=== PATIENT | male | born 1970 | race Caucasian/White ===

== ENCOUNTER 2016-11-19 05:33 | Emergency (ER) | payer OTHER ==
[~2016-11-19] VITALS: Ht 177.8 cm; Wt 81.5 kg
[~2016-11-19 05:33] MED LIST: ALPR2TAB3 PO
[2016-11-19 05:42] VITALS: BP 160/80; PULSE 92; RESP 18; TEMP 97.7; O2SAT 100
[2016-11-19] MEDS ORDERED: ALPR.5 PO (06:39)
--- NOTE | 2016-11-19 06:40 | PD ---
HPI Chief Complaint: Anxiety Time Seen by Provider: 06:17 Travel History International Travel<30 days: No Contact w/Intl Traveler<30days: No Traveled to known affect area: No History of Present Illness HPI The patient is a 46-year-old male who drove his car to the emergency department because of panic attack and anxiety. He states he cannot find his 0.5 mg Xanax that are prescribed to him by [facility]. He knew he was having his typical anxiety/panic disorder but could not find his medication for it. He only takes Xanax when he has a panic attack. He complains of his usual chest tightness and shortness of breath. He has had these episodes multiple times before and knows that they're typical of his panic attacks. He denies any syncopal or near syncopal spells. The patient does have a history of mitral valve prolapse. PFSH Past Medical History Hx Anticoagulant Therapy: No Anxiety: Yes (PTSD) Cardiovascular Problems: No Chemotherapy: No Chest Pain: Yes Cerebrovascular Accident: No Diabetes: No Diminished Hearing: No Respiratory: No Tetanus Vaccination: Unknown Influenza Vaccination: No Past Surgical History Abdominal Surgery: No Hysterectomy: No Joint Replacement: Yes (RIGHT ARM AND LEFT LEG) Other Surgery: Yes (RT ARM FX, LT LEG FX, RIB FX, SKULL FX) Social History Alcohol Use: Yes (BEER OCCASIONALLY) Tobacco Use: No (QUIT 27 YRS AGO) Substance Use: No Allergies-Medications (Allergen,Severity, Reaction): Coded Allergies: No Known Allergies (Unverified , 11/19/16) 05/14/15 Reported Meds & Prescriptions Reported Meds & Active Scripts Active No Active Prescriptions or Reported Medications Review of Systems Except as stated in HPI: all other systems reviewed are Neg Physical Exam Narrative GENERAL: Well-nourished, well-developed patient in no apparent distress. His vital signs show blood pressure 160/80 but are otherwise normal.. SKIN: Warm and dry. HEAD: Normocephalic. EYES: No scleral icterus. No injection or drainage. NECK: Supple, trachea midline. No JVD or lymphadenopathy. CARDIOVASCULAR: Regular rate and rhythm with a 2/6 systolic murmurs, gallops, or rubs. RESPIRATORY: Breath sounds equal bilaterally. No accessory muscle use. GASTROINTESTINAL: Abdomen soft, non-tender, nondistended. MUSCULOSKELETAL: No cyanosis, or edema. BACK: Nontender without obvious deformity. No CVA tenderness. Data Data Last Documented VS Vital Signs Date Time Temp Pulse Resp B/P Pulse Ox O2 Delivery O2 Flow Rate FiO2 11/19/16 05:45 100 18 11/19/16 05:42 97.7 160/80 100 Orders Electrocardiogram (11/19/16 ) MDM Medical Decision Making Medical Screen Exam Complete: Yes Emergency Medical Condition: Yes Medical Record Reviewed: Yes Interpretation(s) The EKG is completely normal with normal sinus rhythm rate of 68. Differential Diagnosis Panic attack, acute coronary syndromehighly unlikely, mitral valve prolapse pain Narrative Course The patient appears to have a panic attack. He appears very calm now but will be given a prescription for 0.5 mg Xanax, No. 15 for future panic attacks. Week he should call his primary care physician and get a refill on his Xanax. Diagnosis Primary Impression: Panic attack Additional Impression: Medication refill Additional Instructions: As we discussed, follow-up with your primary care physician at [facility] next week as soon as possible. Med/Other Pt SpecificInfo: Prescription(s) given Scripts Alprazolam (Xanax)0.5 Mg Tab0.5 Mg PO Q8H PRN (ANXIETY) #15 TAB Ref 0 Prov:Redd Zee MD 11/19/16 Disposition: 01 DISCHARGE HOME Condition: Stable Redd Zee MD Nov 19, 2016 06:40
[2016-11-19] MEDS ORDERED: ALPRAZolam 0.5 MG TAB PO ONE (06:45)
[2016-11-19 06:52] VITALS: BP 150/84; PULSE 78; RESP 18; O2SAT 98
--- NOTE | 2016-11-19 14:34 | EKG ---
Date Performed: 11/19/2016 Time Performed: 06:26:34 PTAGE: 46 years EKG: Sinus rhythm . Normal ECG PREVIOUS TRACING : 11/08/2015 04.56 No significant change from previous tracing noted. DOCTOR: Dino Araiza Interpretating Date/Time 11/19/2016 14:32:22
[2017-01-12] MEDS ORDERED: ZOLO50TA PO (10:30)
[2017-01-12] MEDS ORDERED: LORA-474 PO (10:30)
[2017-03-01] MEDS ORDERED: ZOLO50TA PO (11:24)
== END 2016-11-19 07:01 | disposition home or self-care (01) ==
LOC: PHED 05:33
DX: F41.0 Panic disorder [episodic paroxysmal anxiety] (principal); R06.02 Shortness of breath; Z76.0 Encounter for issue of repeat prescription
CPT/HCPCS: 93005

== ENCOUNTER 2016-11-26 14:46 | Emergency (ER) | payer OTHER ==
[~2016-11-26] VITALS: Ht 177.8 cm; Wt 81.0 kg
[~2016-11-26 14:46] MED LIST changes: +ALPR.5 PO; -ALPR2TAB3 PO
[2016-11-26 14:57] VITALS: BP 157/86; PULSE 102; RESP 16; TEMP 100.7; O2SAT 97
[2016-11-26] MEDS ORDERED: BENA25TA3 PO (15:04)
[2016-11-26 15:05] VITALS: BP 134/72; PULSE 96; RESP 18; TEMP 99.7; O2SAT 96
[2016-11-26] MEDS ORDERED: NAPR500T PO (15:16)
[2016-11-26] MEDS ORDERED: OSEL75 PO (15:16)
--- NOTE | 2016-11-26 15:17 | PD ---
HPI Chief Complaint: Fever Time Seen by Provider: 15:04 Travel History International Travel<30 days: No Contact w/Intl Traveler<30days: No Traveled to known affect area: No History of Present Illness HPI This Is a 46-year-old male who presents to the emergency department having woken up at 2 AM with body aches, sore throat, rhinorrhea, fever and feeling "hot", moderate severity, constant, worsening throughout the day. He has had a cough with some clear sputum production. He reports that his children have all been sick with similar symptoms. He is otherwise healthy. PFSH Past Medical History Hx Anticoagulant Therapy: No Anxiety: Yes (PTSD) Cardiovascular Problems: Yes (mitral valve prolapse) Chemotherapy: No Chest Pain: Yes Cerebrovascular Accident: No Diabetes: No Diminished Hearing: No Respiratory: No Influenza Vaccination: No Past Surgical History Abdominal Surgery: No Hysterectomy: No Joint Replacement: Yes (RIGHT ARM AND LEFT LEG) Other Surgery: Yes (RT ARM FX, LT LEG FX, RIB FX, SKULL FX) Social History Alcohol Use: Yes (BEER OCCASIONALLY) Tobacco Use: No (QUIT 27 YRS AGO) Substance Use: No Allergies-Medications (Allergen,Severity, Reaction): Coded Allergies: No Known Allergies (Unverified , 11/19/16) 05/14/15 Reported Meds & Prescriptions Reported Meds & Active Scripts Active Xanax (Alprazolam) 0.5 Mg Tab 0.5 Mg PO Q8H PRN Reported Benadryl Allergy (Diphenhydramine HCl) 25 Mg Tab 25 Mg PO Q6H PRN Review of Systems Except as stated in HPI: all other systems reviewed are Neg Physical Exam Narrative GENERAL:Well appearing, no acute distress SKIN: Warm and dry. HEAD: Atraumatic. Normocephalic. EYES: Pupils equal and round. No injection or drainage. ENT: Moist mucous membranes. Mild posterior pharyngeal erythema with no exudates. NECK: Trachea midline. CARDIOVASCULAR: Regular rate and rhythm. No murmur appreciated. RESPIRATORY: Clear to auscultation. Breath sounds equal bilaterally. GASTROINTESTINAL: Abdomen soft, non-tender, nondistended. MUSCULOSKELETAL: No obvious deformities. NEUROLOGICAL: Awake and alert. No obvious cranial nerve deficits. Moving all extremities.. PSYCHIATRIC: Appropriate mood and affect; insight and judgment normal. Data Data Last Documented VS Vital Signs Date Time Temp Pulse Resp B/P Pulse Ox O2 Delivery O2 Flow Rate FiO2 3/4/17 15:05 99.7 96 18 134/72 96 Room Air MDM Medical Decision Making Medical Screen Exam Complete: Yes Emergency Medical Condition: Yes Interpretation(s) Fever, tachycardia, hypertensive Differential Diagnosis Influenza, bronchitis, viral syndrome, pneumonia Narrative Course This is a 46-year-old male who presents to the emergency department with fevers , body aches, sore throat and rhinorrhea. He has bizarre affect, and may be somewhat intoxicated but doesn't appear encephalopathic or otherwise toxic. His and kids have both been sick with similar symptoms. I suspect he has influenza. Given his symptoms only started this morning plan for empiric treatment with Tamiflu. Patient will be discharged home. Diagnosis Primary Impression: Viral syndrome Patient Instructions: General Instructions Additional Instructions: If you develop severe chest pain, shortness of breath, sweating, lightheadedness , dizziness or difficulty breathing return to the emergency department immediately. Followup with your primary care physician in 2-3 days if your symptoms are not resolved. Med/Other Pt SpecificInfo: Prescription(s) given Scripts Naproxen 500 Mg [id number] Mg PO BID PRN (FEVER) #10 TAB Ref 0 Prov:Radha Tran MD 11/26/16 Oseltamivir (Tamiflu)75 Mg Cap75 Mg PO BID 5 Days Ref 0 Prov:Radha Tran MD 11/26/16 Disposition: 01 DISCHARGE HOME Condition: Stable Radha Tran MD Nov 26, 2016 15:16
[2016-11-26] MEDS ORDERED: KETOROLAC TROMETHAMINE 60 MG/2 ML (IM) VIAL IM ONE (15:30)
[2017-01-12] MEDS ORDERED: ZOLO50TA PO (10:30)
[2017-01-12] MEDS ORDERED: LORA-474 PO (10:30)
[2017-03-01] MEDS ORDERED: ZOLO50TA PO (11:24)
== END 2016-11-26 15:36 | disposition home or self-care (01) ==
LOC: PHED 14:46
DX: B34.9 Viral infection, unspecified (principal); J02.9 Acute pharyngitis, unspecified; R50.9 Fever, unspecified; I34.1 Nonrheumatic mitral (valve) prolapse; Z87.891 Personal history of nicotine dependence
CPT/HCPCS: 96372; 99283; J1885

== ENCOUNTER 2016-12-21 23:31 | Emergency (ER) | payer OTHER ==
[~2016-12-21] VITALS: Ht 177.8 cm; Wt 81.0 kg
[~2016-12-21 23:31] MED LIST changes: +BENA25TA3 PO; +NAPR500T PO; +OSEL75 PO
[2016-12-21 23:40] VITALS: BP 128/93; PULSE 78; RESP 18; TEMP 98.6; O2SAT 18; O2SAT 96
[2017-01-12] MEDS ORDERED: LORA-474 PO (10:30)
[2017-01-12] MEDS ORDERED: ZOLO50TA PO (10:30)
[2017-03-01] MEDS ORDERED: ZOLO50TA PO (11:24)
== END 2016-12-22 00:53 | disposition left against medical advice (07) ==
LOC: PHED 23:31
DX: R03.0 Elevated blood-pressure reading, without diagnosis of hypertension (principal); Z53.21 Procedure and treatment not carried out due to patient leaving prior to being seen by health care provider
CPT/HCPCS: 99281

== ENCOUNTER 2017-04-08 04:28 | Emergency (ER) | payer OTHER ==
[~2017-04-08] VITALS: Ht 177.8 cm; Wt 80.5 kg
[~2017-04-08 04:28] MED LIST changes: -ALPR.5 PO; -BENA25TA3 PO; +LORA-474 PO; -NAPR500T PO; -OSEL75 PO; +ZOLO50TA PO
[2017-04-08 04:35] VITALS: BP 130/82; PULSE 69; RESP 18; TEMP 98.4; O2SAT 97
--- NOTE | 2017-04-08 05:03 | PD ---
HPI Chief Complaint: Anxiety Time Seen by Provider: 05:00 Travel History International Travel<30 days: No Contact w/Intl Traveler<30days: No Traveled to known affect area: No History of Present Illness HPI 46-year-old male presents to the emergency department by EMS transportation for evaluation of awakening from sleep with anxiety attack and palpitations. Patient has history of anxiety and has been seen in the emergency department numerous times for same complaint. No report of new symptoms no new chest pain no new shortness of breath no sweats no new nausea vomiting no referred neck jaw back shoulder arm pain. Patient states he just started a new job 5 days ago and has been slightly anxious about the job and is supposed to work today. Patient did take his medication as prescribed distal has anxiety. Patient has appointment to follow-up with his primary care provider but is towards the end of the month of March. Patient has had no recent febrile illness or respiratory illness or complaints. Patient also has history of mitral valve prolapse, multiple orthopedic surgeries, occasional alcohol use. PFSH Past Medical History Narrative Medical Anxiety mitral valve prolapse palpitations Hx Anticoagulant Therapy: No Anxiety: Yes (PTSD) Cardiovascular Problems: Yes (mitral valve prolapse) Chemotherapy: No Chest Pain: Yes Cerebrovascular Accident: No Diabetes: No Diminished Hearing: No Respiratory: No Tetanus Vaccination: Unknown Influenza Vaccination: No (never) Past Surgical History Abdominal Surgery: No Hysterectomy: No Joint Replacement: Yes (RIGHT ARM AND LEFT LEG) Other Surgery: Yes (RT ARM FX, LT LEG FX, RIB FX, SKULL FX) Social History Alcohol Use: Yes (BEER Rarely) Tobacco Use: No (QUIT 27 YRS AGO) Substance Use: No Allergies-Medications (Allergen,Severity, Reaction): Coded Allergies: No Known Allergies (Unverified , 04/08/17) 05/14/15 Reported Meds & Prescriptions Reported Meds & Active Scripts Active Zoloft (Sertraline HCl) 50 Mg Tab 50 Mg PO DAILY Ativan (Lorazepam) 1 Mg Tab 1 Mg PO Q8H PRN Review of Systems Except as stated in HPI: all other systems reviewed are Neg General / Constitutional: No: Fever HENT: No: Congestion Cardiovascular: Positive: Palpitations, No: Chest Pain or Discomfort, Diaphoresis Respiratory: No: Shortness of Breath Gastrointestinal: No: Abdominal Pain Genitourinary: No: Flank Pain Musculoskeletal: No: Pain Skin: No Rash Neurologic: No: Weakness Psychiatric: Positive: Anxiety, No: Suicidal Ideations, Substance Abuse, Homicidal Ideation Endocrine: No: Heat Intolerance Hematologic/Lymphatic: No: Lymph Node Enlargement Physical Exam Narrative GENERAL: Well-developed well-nourished male in no acute distress no respiratory distress SKIN: Warm and dry. HEAD: Normocephalic. EYES: No scleral icterus. No injection or drainage. NECK: Supple, trachea midline. No JVD or lymphadenopathy. CARDIOVASCULAR: Regular rate and rhythm without murmurs, gallops, or rubs. RESPIRATORY: Breath sounds equal bilaterally. No accessory muscle use. GASTROINTESTINAL: Abdomen soft, non-tender, nondistended. MUSCULOSKELETAL: No cyanosis, or edema. BACK: Nontender without obvious deformity. No CVA tenderness. Data Data Last Documented VS Vital Signs Date Time Temp Pulse Resp B/P Pulse Ox O2 Delivery O2 Flow Rate FiO2 04/08/17 04:35 98.4 69 18 130/82 97 MDM Medical Decision Making Medical Screen Exam Complete: Yes Emergency Medical Condition: Yes Medical Record Reviewed: Yes Differential Diagnosis Anxiety, palpitations, arrhythmia, electrolyte disturbance, dehydration Narrative Course Triage vital signs are found to be in normal range; patient resting comfortably in exam room voicing no concerns or complaints at this time. Patient reports this is consistent with his anxiety and states increased stress because of her job. Patient is otherwise stable and not desirous of pursuing any diagnostics at this time. Patient is stable for outpatient management and follow-up with his primary care provider. Diagnosis Primary Impression: Anxiety Additional Impression: History of palpitations Referrals: Primary Care Physician call for appointment Patient Instructions: General Instructions Additional Instructions: Increase fluid hydration Follow-up with primary care provider Continue current medications as presently prescribed May use Benadryl per package directions as needed as sleep aid on the occasional as-needed basis Return to the emergency department for any concerns or change in condition Med/Other Pt SpecificInfo: No Change to Meds Disposition: 01 DISCHARGE HOME Condition: Stable Addis Mcdonald MD Apr 08, 2017 05:03
== END 2017-04-08 05:34 | disposition home or self-care (01) ==
LOC: PHED 04:28
DX: F41.9 Anxiety disorder, unspecified (principal)
CPT/HCPCS: 99283

== ENCOUNTER 2017-05-01 02:33 | Emergency (ER) | payer OTHER ==
[~2017-05-01] VITALS: Ht 177.8 cm; Wt 80.7 kg
[2017-05-01 02:47] VITALS: BP 127/67; PULSE 70; RESP 18; TEMP 98.4; O2SAT 97
== END 2017-05-01 02:56 | disposition left against medical advice (07) ==
LOC: PHED 02:33
DX: F41.9 Anxiety disorder, unspecified (principal)
CPT/HCPCS: 99281

== ENCOUNTER 2017-05-09 04:39 | Emergency (ER) | payer OTHER ==
[~2017-05-09] VITALS: Ht 177.8 cm; Wt 79.5 kg
[2017-05-09 04:40] VITALS: BP 152/91; PULSE 57; RESP 18; TEMP 98.3; O2SAT 96
[2017-05-09] MEDS ORDERED: SODIUM CHLORIDE 0.9% FLUSH 10 ML FLUSH IVF PRN (04:45)
--- NOTE | 2017-05-09 04:47 | PD ---
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 states that the panic attack woke him up from sleep, no cp/sob/zambrano/abdpain/n/v/d/ currently and all symptoms have fully resolved. this is patient's 7visit this year for similar symptoms. PFSH Past Medical History Hx Anticoagulant Therapy: No Anxiety: Yes (PTSD) Cardiovascular Problems: Yes (mitral valve prolapse) Chemotherapy: No Chest Pain: Yes Cerebrovascular Accident: No Diabetes: No Diminished Hearing: No Respiratory: No Past Surgical History Abdominal Surgery: No Hysterectomy: No Joint Replacement: Yes (RIGHT ARM AND LEFT LEG) Other Surgery: Yes (RT ARM FX, LT LEG FX, RIB FX, SKULL FX) Social History Alcohol Use: Yes (BEER Rarely) Tobacco Use: No (QUIT 27 YRS AGO) Substance Use: No Allergies-Medications (Allergen,Severity, Reaction): Coded Allergies: No Known Allergies (Unverified , 05/11/17) 05/14/15 Reported Meds & Prescriptions Reported Meds & Active Scripts Active Ativan (Lorazepam) 1 Mg Tab 1 Mg PO Q8H PRN Review of Systems Except as stated in HPI: all other systems reviewed are Neg Cardiovascular: Positive: Palpitations Physical Exam Narrative GENERAL: SKIN: Warm and dry. HEAD: Atraumatic. Normocephalic. EYES: Pupils equal and round. No scleral icterus. No injection or drainage. ENT: No nasal bleeding or discharge. Mucous membranes pink and moist. NECK: Trachea midline. No JVD. CARDIOVASCULAR: Regular rate and rhythm. RESPIRATORY: No accessory muscle use. Clear to auscultation. Breath sounds equal bilaterally. GASTROINTESTINAL: Abdomen soft, non-tender, nondistended. MUSCULOSKELETAL: Extremities without clubbing, cyanosis, or edema. No obvious deformities. NEUROLOGICAL: Awake and alert. No obvious cranial nerve deficits. Motor grossly within normal limits. Five out of 5 muscle strength in the arms and legs. Normal speech. PSYCHIATRIC: Appropriate mood and affect; insight and judgment normal. Data Data Last Documented VS Vital Signs Date Time Temp Pulse Resp B/P Pulse Ox O2 Delivery O2 Flow Rate FiO2 05/09/17 06:23 62 18 108/67 97 05/09/17 05:09 98.3 Room Air Orders Electrocardiogram (05/09/17 04:42) B-Type Natriuretic Peptide (05/09/17 04:42) Ckmb (Isoenzyme) Profile (05/09/17 04:42) Complete Blood Count With Diff (05/09/17 04:42) Comprehensive Metabolic Panel (05/09/17 04:42) Prothrombin Time / Inr (Pt) (05/09/17 04:42) Act Partial Throm Time (Ptt) (05/09/17 04:42) Troponin I (05/09/17 04:42) Chest, Single Ap (05/09/17 04:42) Ecg Monitoring (05/09/17 04:42) Bilateral Bp Monitoring (05/09/17 04:42) Iv Access Insert/Monitor (05/09/17 04:42) Oximetry (05/09/17 04:42) Oxygen Administration (05/09/17 04:42) Sodium Chloride 0.9% Flush (Ns Flush) (05/09/17 04:45) Thyroid Stimulating Hormone (05/09/17 04:43) Drug Screen, Random Urine (05/09/17 04:43) Alcohol (Ethanol) (05/09/17 04:43) Salicylates (Aspirin) (05/09/17 04:43) Tylenol (Acetaminophen) (05/09/17 04:43) CKMB (05/09/17 04:45) CKMB% (05/09/17 04:45) Labs Laboratory Tests Test 05/09/17 05/09/17 05/09/17 04:45 04:50 05:20 White Blood Count 6.2 TH/MM3 Red Blood Count 5.00 MIL/MM3 Hemoglobin 14.7 GM/DL Hematocrit 44.4 % Mean Corpuscular Volume 88.9 FL Mean Corpuscular Hemoglobin 29.5 PG Mean Corpuscular Hemoglobin 33.2 % Concent Red Cell Distribution Width 12.2 % Platelet Count 266 TH/MM3 Mean Platelet Volume 8.6 FL Neutrophils (%) (Auto) 45.3 % Lymphocytes (%) (Auto) 38.1 % Monocytes (%) (Auto) 9.8 % Eosinophils (%) (Auto) 6.6 % Basophils (%) (Auto) 0.2 % Neutrophils # (Auto) 2.8 TH/MM3 Lymphocytes # (Auto) 2.4 TH/MM3 Monocytes # (Auto) 0.6 TH/MM3 Eosinophils # (Auto) 0.4 TH/MM3 Basophils # (Auto) 0.0 TH/MM3 CBC Comment DIFF FINAL Differential Comment Prothrombin Time 11.5 SEC Prothromb Time International 1.0 RATIO Ratio Activated Partial 29.6 SEC Thromboplast Time Sodium Level 139 MEQ/L Potassium Level 3.4 MEQ/L Chloride Level 106 MEQ/L Carbon Dioxide Level 24.7 MEQ/L Anion Gap 8 MEQ/L Blood Urea Nitrogen 18 MG/DL Creatinine 1.00 MG/DL Estimat Glomerular Filtration 80 ML/MIN Rate Random Glucose 93 MG/DL Calcium Level 8.9 MG/DL Total Bilirubin 0.4 MG/DL Aspartate Amino Transf 22 U/L (AST/SGOT) Alanine Aminotransferase 24 U/L (ALT/SGPT) Alkaline Phosphatase 73 U/L Total Creatine Kinase 160 U/L Creatine Kinase MB 2.0 NG/ML Troponin I LESS THAN 0.02 NG/ML B-Type Natriuretic Peptide 5 PG/ML Total Protein 7.6 GM/DL Albumin 3.9 GM/DL Thyroid Stimulating Hormone 4.860 uIU/ML 3rd Gen Salicylates Level LESS THAN 1.7 MG/DL Acetaminophen Level LESS THAN 2.0 MCG/ML Ethyl Alcohol Level LESS THAN 3 MG/DL Urine Opiates Screen NEG Urine Barbiturates Screen NEG Urine Amphetamines Screen NEG Urine Benzodiazepines Screen NEG Urine Cocaine Screen NEG Urine Cannabinoids Screen NEG MDM Medical Decision Making Medical Screen Exam Complete: Yes Emergency Medical Condition: Yes Medical Record Reviewed: Yes Interpretation(s) nsr 67, nl intervals, j point elevation without stemi pattern Differential Diagnosis palpitations v dysrhythmia v anemia v dehydration v electrolyte abnl v mi v coingestions Narrative Course no electrolyte abnl found, no dysrhythmia on ekg, no anemia/dehydration noted, no nonstemi or stemi. no coingestions Diagnosis Primary Impression: palpitations resolved Patient Instructions: Anxiety (ED), General Instructions Disposition: 01 DISCHARGE HOME Condition: Stable Elvis Negron MD May 09, 2017 04:47
[2017-05-09 05:03] VITALS: BP 152/91; PULSE 57; RESP 18; TEMP 98.3; O2SAT 98
[2017-05-09 05:06] LABS: CHLORIDE 106 MEQ/L (98-107); POTASSIUM 3.4 MEQ/L (3.5-5.1); SODIUM (NA) 139 MEQ/L (136-145)
[2017-05-09 05:09] VITALS: BP_SYST 152; BP_SYST 156; BP_DIAS 87; BP_DIAS 91; PULSE 57; RESP 18; TEMP 98.3; O2SAT 98
[2017-05-09 05:09] LABS: ANION GAP 8 MEQ/L (5-15); BICARBONATE 24.7 MEQ/L (21.0-32.0)
[2017-05-09 05:10] LABS: APTT (PATIENT) 29.6 SEC (24.3-30.1); BLOOD UREA NITROGEN 18 MG/DL (7-18); PROTHROMBIN TIME - PATIENT 11.5 SEC (9.8-11.6)
[2017-05-09 05:12] LABS: ALT (GPT) 24 U/L (12-78)
[2017-05-09 05:13] LABS: AST (GOT) 22 U/L (15-37); GLOMERULAR FILTRATION RATE 80 ML/MIN (>89)
[2017-05-09 05:14] LABS: TOTAL BILIRUBIN ADULT 0.4 MG/DL (0.2-1.0)
[2017-05-09 05:15] LABS: ALKALINE PHOSPHATASE 73 U/L (45-117); CREATINE KINASE 160 U/L (39-308)
--- NOTE | 2017-05-09 05:21 | RADRPT ---
EXAM DATE/TIME: 05/09/2017 04:53 [facility] COMPARISON: CHEST SINGLE AP, May 07, 2015, 4:05. INDICATIONS : Shortness of breath. MEDICAL HISTORY : Mitral valve prolapse. SURGICAL HISTORY : None. ENCOUNTER: Initial ACUITY: 1 day PAIN SCORE: 0/10 LOCATION: Bilateral chest FINDINGS: A single view of the chest demonstrates the lungs to be symmetrically aerated without evidence of mas s, infiltrate or effusion. The cardiomediastinal contours are unremarkable. Moderate curvature of t horacic spine towards the right, stable from 2014. CONCLUSION: The lungs are clear. Alfredo Plata MD on May 09, 2017 at 5:19 Board Certified Radiologist. This report was verified electronically.
[2017-05-09 06:02] LABS: AUTOMATED NEUTROPHIL # 2.8 TH/MM3 (1.8-7.7); BASOPHIL % 0.2 % (0.0-2.0); EOSINOPHIL # 0.4 TH/MM3 (0-0.4); EOSINOPHIL % 6.6 % (0.0-4.0); HEMATOCRIT 44.4 % (39.0-51.0); HEMO FLAGS DIFF FINAL; LYMPH % 38.1 % (9.0-44.0); LYMPHOCYTE # 2.4 TH/MM3 (1.0-4.8); MEAN CELL VOLUME 88.9 FL (80.0-100.0); MEAN CORPUSCULAR HEMOGLOBIN 29.5 PG (27.0-34.0); MEAN CORPUSCULAR HGB CONC 33.2 % (32.0-36.0); MONO % 9.8 % (0.0-8.0); NEUT % 45.3 % (16.0-70.0); PLATELET COUNT 266 TH/MM3 (150-450); RED CELL DISTRIBUTION WIDTH 12.2 % (11.6-17.2); WHITE BLOOD COUNT 6.2 TH/MM3 (4.0-11.0)
[2017-05-09 06:23] VITALS: BP 108/67
[2017-05-09 06:34] LABS: ACETAMINOPHEN LESS THAN 2.0 MCG/ML (10.0-30.0)
[2017-05-09 06:38] LABS: ALCOHOL LESS THAN 3 MG/DL (0-5)
--- NOTE | 2017-05-09 07:31 | EKG ---
Date Performed: 05/09/2017 Time Performed: 05:08:59 PTAGE: 46 years EKG: Sinus rhythm NORMAL ECG Compared to prior tracing no significant change PREVIOUS TRACING : 11/19/2016 06.26 DOCTOR: Nicholas Silva Interpretating Date/Time 05/09/2017 07:30:07
== END 2017-05-09 06:35 | disposition home or self-care (01) ==
LOC: PHED 04:39
DX: R00.2 Palpitations (principal); R06.02 Shortness of breath; F43.10 Post-traumatic stress disorder, unspecified; F41.0 Panic disorder [episodic paroxysmal anxiety]
CPT/HCPCS: 71010; 80053; 80307; 82550; 82552; 83880; 84443; 84484; 85025; 85610; 85730; 93005; 99285

== ENCOUNTER 2017-05-11 01:45 | Emergency (ER) | payer OTHER ==
[~2017-05-11] VITALS: Ht 177.8 cm; Wt 80.0 kg
[2017-05-11 01:52] VITALS: BP 175/87; PULSE 18; PULSE 90; RESP 18; TEMP 97.7; O2SAT 99
[2017-05-11 02:01] VITALS: BP 146/80; PULSE 85; RESP 18; O2SAT 98
--- NOTE | 2017-05-11 02:35 | PD ---
HPI Chief Complaint: Anxiety Time Seen by Provider: 02:32 Travel History International Travel<30 days: No Contact w/Intl Traveler<30days: No Traveled to known affect area: No History of Present Illness HPI 46-year-old male returns to the emergency department for complaint of panic attack. Patient has history of panic disorder and has had multiple evaluations in the emergency department for same complaint. Patient states he awakened this morning with a panic attack and noted some burning in his chest and had some reflux and became concerned. No report of referred neck jaw back shoulder arm pain. No report of shortness of breath sweats nausea or vomiting. No report of pleuritic chest pain. No report of productive cough. No report of hemoptysis. No report of discomfort at this time. No report of burning sensation at this time. Reportedly at time of triage symptoms are still present and reportedly 6/10 in intensity. Patient did not take any antacids prior to arrival to the emergency department but did take his as needed Xanax. Feels back to normal. PFSH Past Medical History Narrative Medical Anxiety mitral valve prolapse panic disorder GERD alcohol use orthopedic surgery ; nursing notes reviewed Hx Anticoagulant Therapy: No Anxiety: Yes (PTSD) Cardiovascular Problems: Yes (mitral valve prolapse) Chemotherapy: No Chest Pain: Yes Cerebrovascular Accident: No Diabetes: No Diminished Hearing: No Respiratory: No Immunizations Current: No Tetanus Vaccination: Unknown Influenza Vaccination: No Past Surgical History Abdominal Surgery: No Hysterectomy: No Joint Replacement: Yes (RIGHT ARM AND LEFT LEG) Other Surgery: Yes (RT ARM FX, LT LEG FX, RIB FX, SKULL FX) Social History Alcohol Use: Yes (BEER Rarely) Tobacco Use: No (QUIT 27 YRS AGO) Substance Use: No Allergies-Medications (Allergen,Severity, Reaction): Coded Allergies: No Known Allergies (Unverified , 05/11/17) 05/14/15 Reported Meds & Prescriptions Reported Meds & Active Scripts Active Ativan (Lorazepam) 1 Mg Tab 1 Mg PO Q8H PRN Review of Systems Except as stated in HPI: all other systems reviewed are Neg General / Constitutional: No: Fever, Chills HENT: No: Congestion Cardiovascular: Positive: Chest Pain or Discomfort Respiratory: No: Shortness of Breath Gastrointestinal: No: Vomiting, Abdominal Pain Genitourinary: No: Flank Pain Musculoskeletal: No: Myalgias, Arthralgias Skin: No Rash Neurologic: No: Weakness Psychiatric: Positive: Anxiety Hematologic/Lymphatic: No: Lymph Node Enlargement Physical Exam Narrative GENERAL: Well-developed well-nourished male in no acute distress no respiratory distress SKIN: Warm and dry. HEAD: Normocephalic. EYES: No scleral icterus. No injection or drainage. NECK: Supple, trachea midline. No JVD or lymphadenopathy. CARDIOVASCULAR: Regular rate and rhythm without murmurs, gallops, or rubs. RESPIRATORY: Breath sounds equal bilaterally. No accessory muscle use. GASTROINTESTINAL: Abdomen soft, non-tender, nondistended. MUSCULOSKELETAL: No cyanosis, or edema. BACK: Nontender without obvious deformity. No CVA tenderness. Data Data Last Documented VS Vital Signs Date Time Temp Pulse Resp B/P Pulse Ox O2 Delivery O2 Flow Rate FiO2 05/11/17 03:01 56 16 119/79 98 Room Air 05/11/17 01:52 97.7 Orders Electrocardiogram (05/11/17 ) Sucralfate Liq (Carafate Liq) (05/11/17 03:00) [facility] Medical Decision Making Medical Screen Exam Complete: Yes Emergency Medical Condition: Yes Medical Record Reviewed: Yes Interpretation(s) EKG sinus bradycardia rate [address] elevation or injury pattern change noted; EKG is unchanged from prior studies Differential Diagnosis Panic disorder, recurrent chest pain, GERD, esophageal spasm, ACS Narrative Course EKG ordered EKG reveals no acute injury pattern change and is unchanged from previous EKGs; patient given a one-time dose of Carafate 1 g by mouth Patient is stable for outpatient management. This is one of many visits to the emergency department for same complaint of awakening from sleep with panic attack. Patient did take a Xanax prior to arrival to the emergency department. Patient is stable for outpatient management and follow-up with his primary care provider. Diagnosis Primary Impression: Recurrent anxiety Additional Impression: H/O gastroesophageal reflux (GERD) Referrals: Primary Care Physician call for appointment Patient Instructions: General Instructions Disposition: 01 DISCHARGE HOME Condition: Stable Addis Mcdonald MD May 11, 2017 02:35
[2017-05-11] MEDS ORDERED: SUCRALFATE 1 GM/10 ML CUP PO ONE (03:00)
[2017-05-11 03:01] VITALS: BP 119/79; PULSE 56; RESP 16; O2SAT 98
--- NOTE | 2017-05-11 16:46 | EKG ---
Date Performed: 05/11/2017 Time Performed: 02:48:31 PTAGE: 46 years EKG: SINUS BRADYCARDIA BORDERLINE ECG PREVIOUS TRACING : 05/09/2017 05.08 Compared to prior tracing no significant change DOCTOR: Masood Bautista Interpretating Date/Time 05/11/2017 16:44:30
== END 2017-05-11 03:16 | disposition home or self-care (01) ==
LOC: PHED 01:45
DX: F41.0 Panic disorder [episodic paroxysmal anxiety] (principal); K21.9 Gastro-esophageal reflux disease without esophagitis; I34.1 Nonrheumatic mitral (valve) prolapse
CPT/HCPCS: 93005; 99283

== ENCOUNTER 2017-08-17 06:21 | Emergency (ER) | payer OTHER ==
[~2017-08-17] VITALS: Ht 177.8 cm; Wt 84.0 kg
[~2017-08-17 06:21] MED LIST changes: -ZOLO50TA PO
[2017-08-17 06:27] VITALS: BP 156/93; PULSE 84; RESP 16; TEMP 98.2; O2SAT 98
--- NOTE | 2017-08-17 07:01 | PD ---
HPI Chief Complaint: Anxiety Time Seen by Provider: 06:31 Travel History International Travel<30 days: No Contact w/Intl Traveler<30days: No Traveled to known affect area: No History of Present Illness HPI The patient is a 46-year-old male that has panic attacks frequently. The are almost always at night. They waking up and the patient often feels like he can' t breathe. He is going to pursue a sleep study which may give him some answers on this. He does have some history of reflux esophagitis and is encouraged to take some Maalox/Mylanta as well as elevate the head of his bed. He has never tried melatonin. It is unlikely that he is fully tried an exercise regimen, he is fairly fit and can walk at least several miles daily. The patient took a milligram of lorazepam about 20 minutes ago and they appear to be working at this time. There is only one tablet missing out of a bottle that was filled on the 16th of this month. He does not abuse drugs or alcohol. He does not drink coffee or stimulants prior to going to bed. PFSH Past Medical History Hx Anticoagulant Therapy: No Anxiety: Yes (PTSD) Cardiovascular Problems: Yes (mitral valve prolapse) Chemotherapy: No Chest Pain: Yes Cerebrovascular Accident: No Diabetes: No Diminished Hearing: No Psychiatric: Yes (ANXIETY) Respiratory: No Immunizations Current: No Tetanus Vaccination: Unknown Influenza Vaccination: No Past Surgical History Abdominal Surgery: No Hysterectomy: No Joint Replacement: Yes (RIGHT ARM AND LEFT LEG) Other Surgery: Yes (RT ARM FX, LT LEG FX, RIB FX, SKULL FX) Social History Alcohol Use: Yes (BEER Rarely) Tobacco Use: No (QUIT 27 YRS AGO) Substance Use: No Allergies-Medications (Allergen,Severity, Reaction): Coded Allergies: No Known Allergies (Unverified Adverse Reaction, Unknown, 08/17/17) 05/14/15 Reported Meds & Prescriptions Reported Meds & Active Scripts Active Ativan (Lorazepam) 1 Mg Tab 1 Mg PO Q8H PRN Review of Systems Except as stated in HPI: all other systems reviewed are Neg Physical Exam Narrative GENERAL: Well-nourished, well-developed patient who does not appear anxious at this time and is calm and collected. His vital signs are normal and oximetry is around 99%. SKIN: Focused skin assessment warm/dry. HEAD: Normocephalic. EYES: No scleral icterus. No injection or drainage. NECK: Supple, trachea midline. No JVD or lymphadenopathy. CARDIOVASCULAR: Regular rate and rhythm without murmurs, gallops, or rubs. RESPIRATORY: Breath sounds equal bilaterally. No accessory muscle use. Lungs clear to auscultation bilaterally. GASTROINTESTINAL: Abdomen soft, non-tender, nondistended. MUSCULOSKELETAL: No cyanosis, or edema. BACK: Nontender without obvious deformity. No CVA tenderness. Data Data Last Documented VS Vital Signs Date Time Temp Pulse Resp B/P (MAP) Pulse Ox O2 Delivery O2 Flow Rate FiO2 08/17/17 06:27 98.2 84 16 156/93 (114) 98 MDM Medical Decision Making Medical Screen Exam Complete: Yes Emergency Medical Condition: Yes Medical Record Reviewed: Yes Differential Diagnosis Panic attack, breathing disorder, hypoxemia, airway obstruction Narrative Course The patient appears to have a panic attack. It is interesting that they are always night. He should pursue the sleep study. At this time I find no evidence of hypoxemia or airway obstruction. Diagnosis Primary Impression: Panic attack Additional Instructions: We discussed some things you can try like a regular increased exercise regimen, melatonin, airway positioning at night, elevating head of bed, taking Maalox/ Mylanta liquid before bed. Do not miss the sleep study. Med/Other Pt SpecificInfo: No Change to Meds Disposition: 01 DISCHARGE HOME Condition: Stable Redd Zee MD Aug 17, 2017 07:01
== END 2017-08-17 07:25 | disposition home or self-care (01) ==
LOC: PHED 06:21
DX: F41.0 Panic disorder [episodic paroxysmal anxiety] (principal)
CPT/HCPCS: 99283

== ENCOUNTER 2017-09-27 00:37 | Emergency (ER) | payer OTHER ==
[~2017-09-27] VITALS: Ht 177.8 cm; Wt 83.6 kg
[2017-09-27 00:43] VITALS: BP 178/93; PULSE 102; RESP 18; TEMP 97.5; O2SAT 100
[2017-09-27] MEDS ORDERED: SODIUM CHLORIDE 0.9% FLUSH 10 ML FLUSH IVF PRN (01:00)
[2017-09-27] MEDS ORDERED: LORazepam 2 MG/ML VIAL IV PUSH ONE (01:00)
--- NOTE | 2017-09-27 01:04 | PD ---
HPI Chief Complaint: Anxiety Time Seen by Provider: 00:48 Travel History International Travel<30 days: No Contact w/Intl Traveler<30days: No Traveled to known affect area: No History of Present Illness HPI 47-year-old male with history of anxiety, brought in by ambulance from home for evaluation of possible anxiety attack. The symptoms started this evening with hyperventilation and chest heaviness. He denies history of cardiac disease. He has been out of his Ativan for a couple of weeks. He denies suicidal or homicidal ideation. No paresthesias or motor deficits. States he feels as though he is going to and is having palpitations. PFSH Past Medical History Hx Anticoagulant Therapy: No Anxiety: Yes (PTSD) Cardiovascular Problems: Yes (mitral valve prolapse) Chemotherapy: No Chest Pain: Yes Cerebrovascular Accident: No Diabetes: No Diminished Hearing: No Psychiatric: Yes (ANXIETY) Respiratory: No Immunizations Current: No Tetanus Vaccination: Unknown Influenza Vaccination: No Past Surgical History Abdominal Surgery: No Hysterectomy: No Joint Replacement: Yes (RIGHT ARM AND LEFT LEG) Other Surgery: Yes (RT ARM FX, LT LEG FX, RIB FX, SKULL FX) Social History Alcohol Use: Yes (BEER Rarely) Tobacco Use: No (QUIT 27 YRS AGO) Substance Use: No Allergies-Medications (Allergen,Severity, Reaction): Coded Allergies: No Known Allergies (Unverified Adverse Reaction, Unknown, 09/27/17) 05/14/15 Reported Meds & Prescriptions Reported Meds & Active Scripts Active Ativan (Lorazepam) 1 Mg Tab 1 Mg PO Q8H PRN Review of Systems Except as stated in HPI: all other systems reviewed are Neg Physical Exam Narrative GENERAL: Well-developed, well-nourished, comfortable, no apparent distress. SKIN: Focused skin assessment warm/dry. HEAD: Atraumatic. Normocephalic. EYES: Pupils equal and round. No scleral icterus. No injection or drainage. ENT: No nasal bleeding or discharge. Mucous membranes pink and moist. NECK: Trachea midline. No JVD. CARDIOVASCULAR: Regular rate and rhythm. Distal pulses brisk and equal bilaterally. RESPIRATORY: No accessory muscle use. Clear to auscultation. Breath sounds equal bilaterally. GASTROINTESTINAL: Abdomen soft, non-tender, nondistended. MUSCULOSKELETAL: No obvious deformities. No clubbing. No cyanosis. No edema. NEUROLOGICAL: Awake and alert. No obvious cranial nerve deficits. Motor grossly within normal limits. Normal speech. PSYCHIATRIC: Appropriate mood and affect; insight and judgment normal. Data Data Last Documented VS Vital Signs Date Time Temp Pulse Resp B/P (MAP) Pulse Ox O2 Delivery O2 Flow Rate FiO2 09/27/17 03:18 70 16 106/73 (84) 96 Room Air 09/27/17 00:43 97.5 Orders Orders Electrocardiogram (09/27/17 00:50) Basic Metabolic Panel (Bmp) (09/27/17 00:50) Ckmb (Isoenzyme) Profile (09/27/17 00:50) Complete Blood Count With Diff (09/27/17 00:50) Prothrombin Time / Inr (Pt) (09/27/17 00:50) Act Partial Throm Time (Ptt) (09/27/17 00:50) Troponin I (09/27/17 00:50) Chest, Single Ap (09/27/17 00:50) Ecg Monitoring (09/27/17 00:50) Iv Access Insert/Monitor (09/27/17 00:50) Oximetry (09/27/17 00:50) Sodium Chloride 0.9% Flush (Ns Flush) (09/27/17 01:00) Lorazepam Inj (Ativan Inj) (09/27/17 01:00) CKMB (09/27/17 01:05) CKMB% (09/27/17 01:05) Troponin I (09/27/17 04:00) Labs Laboratory Tests Test 09/27/17 01:05 09/27/17 04:00 White Blood Count 9.1 TH/MM3 Red Blood Count 5.34 MIL/MM3 Hemoglobin 15.9 GM/DL Hematocrit 46.9 % Mean Corpuscular Volume 87.9 FL Mean Corpuscular Hemoglobin 29.8 PG Mean Corpuscular Hemoglobin Concent 33.9 % Red Cell Distribution Width 12.6 % Platelet Count 273 TH/MM3 Mean Platelet Volume 8.1 FL Neutrophils (%) (Auto) 48.0 % Lymphocytes (%) (Auto) 29.5 % Monocytes (%) (Auto) 6.5 % Eosinophils (%) (Auto) 15.5 % Basophils (%) (Auto) 0.5 % Neutrophils # (Auto) 4.4 TH/MM3 Lymphocytes # (Auto) 2.7 TH/MM3 Monocytes # (Auto) 0.6 TH/MM3 Eosinophils # (Auto) 1.4 TH/MM3 Basophils # (Auto) 0.0 TH/MM3 CBC Comment DIFF FINAL Differential Comment Prothrombin Time 10.3 SEC Prothromb Time International Ratio 1.0 RATIO Activated Partial Thromboplast Time 25.9 SEC Blood Urea Nitrogen 17 MG/DL Creatinine 1.30 MG/DL Random Glucose 114 MG/DL Calcium Level 9.0 MG/DL Sodium Level 139 MEQ/L Potassium Level 3.7 MEQ/L Chloride Level 105 MEQ/L Carbon Dioxide Level 23.4 MEQ/L Anion Gap 11 MEQ/L Estimat Glomerular Filtration Rate 59 ML/MIN Total Creatine Kinase 139 U/L Creatine Kinase MB 1.9 NG/ML Troponin I LESS THAN 0.02 NG/ML LESS THAN 0.02 NG/ML MDM Medical Decision Making Medical Screen Exam Complete: Yes Emergency Medical Condition: Yes Interpretation(s) EKG: Sinus, rate 91, normal axis, normal intervals, no acute ischemic abnormality. Differential Diagnosis Panic attack, anxiety, ACS, pneumothorax, pericarditis, PE, pneumonia Narrative Course Vital signs reviewed. CBC is unremarkable. BMP is essentially unremarkable. Cardiac enzymes are negative. Chest x-ray: No acute disease. The patient was given 1 mg of IV Ativan and on reassessment he is sleeping comfortably. States that his chest pain has resolved. Delta troponin will be performed. I have a low suspicion that the patient's chest heaviness is cardiac in nature and is more likely secondary to panic attacks/anxiety. Delta troponin is also negative. On reassessment the patient is sleeping comfortably. He was made aware of all findings. He states his chest pain is resolved. I do not believe his chest pain is cardiac in nature and believe that his symptoms were more likely a panic attack/anxiety. He is stable for discharge home with outpatient follow- up with a primary care physician this week. He was informed on when to return to the emergency department. He verbalizes understanding and agreement with plan. Diagnosis Primary Impression: Panic attack Additional Impression: Atypical chest pain Referrals: Primary Care Physician 3 days Additional Instructions: Follow-up with a primary care physician this week. Return to the emergency department for worsening symptoms or any other concerns. Disposition: 01 DISCHARGE HOME Condition: Stable Cisco Barber MD Sep 27, 2017 01:04
[2017-09-27 01:07] VITALS: O2SAT 100
--- NOTE | 2017-09-27 01:10 | RADRPT ---
EXAM DATE/TIME: 09/27/2017 00:58 [facility] COMPARISON: CHEST SINGLE AP, May 09, 2017, 4:53. INDICATIONS : Chest pain. MEDICAL HISTORY : Mitral valve prolapse. SURGICAL HISTORY : None. ENCOUNTER: Initial ACUITY: 1 day PAIN SCORE: 4/10 LOCATION: Bilateral chest FINDINGS: A single view of the chest demonstrates the lungs to be symmetrically aerated without evidence of mas s, infiltrate or effusion. The cardiomediastinal contours are unremarkable. Osseous structures are intact. A scoliotic spine. CONCLUSION: No acute disease. Alfredo Rizvi Jr., MD on September 27, 2017 at 1:08 Board Certified Radiologist. This report was verified electronically.
[2017-09-27 01:28] LABS: AUTOMATED NEUTROPHIL # 4.4 TH/MM3 (1.8-7.7); BASOPHIL % 0.5 % (0.0-2.0); EOSINOPHIL # 1.4 TH/MM3 (0-0.4); EOSINOPHIL % 15.5 % (0.0-4.0); HEMATOCRIT 46.9 % (39.0-51.0); HEMOGLOBIN 15.9 GM/DL (13.0-17.0); LYMPH % 29.5 % (9.0-44.0); LYMPHOCYTE # 2.7 TH/MM3 (1.0-4.8); MEAN CELL VOLUME 87.9 FL (80.0-100.0); MEAN CORPUSCULAR HEMOGLOBIN 29.8 PG (27.0-34.0); MEAN CORPUSCULAR HGB CONC 33.9 % (32.0-36.0); MEAN PLATELET VOLUME 8.1 FL (7.0-11.0); MONO % 6.5 % (0.0-8.0); MONOCYTE # 0.6 TH/MM3 (0-0.9); PLATELET COUNT 273 TH/MM3 (150-450); RED BLOOD COUNT 5.34 MIL/MM3 (4.50-5.90); RED CELL DISTRIBUTION WIDTH 12.6 % (11.6-17.2); WHITE BLOOD COUNT 9.1 TH/MM3 (4.0-11.0)
[2017-09-27 01:38] LABS: CHLORIDE 105 MEQ/L (98-107); SODIUM (NA) 139 MEQ/L (136-145)
[2017-09-27 01:42] LABS: BICARBONATE 23.4 MEQ/L (21.0-32.0); BLOOD UREA NITROGEN 17 MG/DL (7-18); GLUCOSE,RANDOM 114 MG/DL (74-106)
[2017-09-27 01:45] LABS: GLOMERULAR FILTRATION RATE 59 ML/MIN (>89)
[2017-09-27 01:48] LABS: TROPONIN I LESS THAN 0.02 NG/ML (0.02-0.05)
[2017-09-27 01:51] LABS: PROTHROMBIN TIME - PATIENT 10.3 SEC (9.8-11.6)
[2017-09-27 03:18] VITALS: BP 106/73; PULSE 70; RESP 16; O2SAT 96
[2017-09-27 04:40] VITALS: BP 107/68
--- NOTE | 2017-09-27 09:48 | EKG ---
Date Performed: 09/27/2017 Time Performed: 01:12:29 PTAGE: 47 years EKG: Sinus rhythm NORMAL ECG PREVIOUS TRACING : 05/11/2017 02.48 DOCTOR: Vidal Zuniga Interpretating Date/Time 09/27/2017 09:46:56
== END 2017-09-27 04:50 | disposition home or self-care (01) ==
LOC: PHED 00:37
DX: F41.0 Panic disorder [episodic paroxysmal anxiety] (principal); R07.89 Other chest pain; R06.4 Hyperventilation; F43.10 Post-traumatic stress disorder, unspecified; I34.1 Nonrheumatic mitral (valve) prolapse; Z87.891 Personal history of nicotine dependence
CPT/HCPCS: 71045; 80048; 82550; 82552; 84484; 85025; 85610; 85730; 93005; 96374; 99284; J2060

== ENCOUNTER 2017-11-25 11:34 | Emergency (ER) | payer OTHER ==
[~2017-11-25] VITALS: Ht 177.8 cm; Wt 82.0 kg
[2017-11-25 11:36] VITALS: BP 160/90; PULSE 88; RESP 17; TEMP 97.7; O2SAT 96
[2017-11-25] MEDS ORDERED: HYDR-3799 PO (11:46)
[2017-11-25] MEDS ORDERED: MEDR4PAK PO (11:50)
[2017-11-25] MEDS ORDERED: ALBUAER3 INH (11:50)
[2017-11-25] MEDS ORDERED: GUAI600T11 PO (11:50)
--- NOTE | 2017-11-25 11:52 | PD ---
HPI Chief Complaint: Cold / Flu Symptoms Time Seen by Provider: 11:42 Travel History International Travel<30 days: No Contact w/Intl Traveler<30days: No Traveled to known affect area: No History of Present Illness HPI 47-year-old male that presents to the ED for evaluation of cold-like symptoms. Per patient about a month ago he had cold-like symptoms and it went away after taking antibiotics. Per patient about 5 days after finishing the medications he felt better but then started having the symptoms again. He was seen in urgent care and then diagnosed with bronchitis and again started on Augmentin. Per patient his been doing okay except that the symptoms do not seem to have improved. Per patient his been having shortness of breath as well as cough. Per patient he does have significant history of anxiety he doesn't know if this might be making his shortness of breath worse. He states that he's also been working with us that he doesn't know this is also causing his symptoms. Has no allergies to medication. No other medical issues. No history of asthma but is concerned he might have it. No allergies to medication. No urinary or bowel movement issues. States compliance with antibiotic given to him. PFSH Past Medical History Hx Anticoagulant Therapy: No Anxiety: Yes (PTSD) Cardiovascular Problems: Yes (mitral valve prolapse) Chemotherapy: No Chest Pain: Yes Cerebrovascular Accident: No Diabetes: No Diminished Hearing: No Psychiatric: Yes (ANXIETY) Respiratory: No Immunizations Current: No Tetanus Vaccination: > 5 Years Influenza Vaccination: No Past Surgical History Abdominal Surgery: No Hysterectomy: No Joint Replacement: Yes (RIGHT ARM AND LEFT LEG) Other Surgery: Yes (RT ARM FX, LT LEG FX, RIB FX, SKULL FX) Social History Alcohol Use: Yes (BEER Rarely) Tobacco Use: No (QUIT 27 YRS AGO) Substance Use: No Allergies-Medications (Allergen,Severity, Reaction): Coded Allergies: No Known Allergies (Unverified Adverse Reaction, Unknown, 11/25/17) 05/14/15 Reported Meds & Prescriptions Reported Meds & Active Scripts Active Mucus Relief ER (Guaifenesin) 600 Mg Tab 1,200 Mg PO BID PRN Medrol Dosepak (Methylprednisolone) 4 Mg Dspk 4 Mg PO DIRECTED Per Pharmacist direction Proair Hfa 8.5 GM Inh (Albuterol Sulfate) 90 Mcg/Act Aer 2 Puff INH Q4-6H PRN 108 mcg/actuation Ativan (Lorazepam) 1 Mg Tab 1 Mg PO Q8H PRN Reported Hydralazine HCl 25 Mg Tablet 50 Mg PO QID Review of Systems Except as stated in HPI: all other systems reviewed are Neg Physical Exam Narrative GENERAL: Well-nourished, well-developed patient in no apparent distress. SKIN: Warm and dry. HEAD: Atraumatic. Normocephalic. EYES: Pupils equal and round reactive to light and accommodation. No scleral icterus. No injection or drainage. ENT: No nasal bleeding or discharge. Mucous membranes pink and moist. TMs are clear with no sign of infection or perforation. No mastoid tenderness. Ear canals are intact bilaterally. No lymphadenopathy. Nostril mucosa is red and moist with clear mucus noted. No sinus tenderness to palpation noted. Tonsils are not enlarged or swollen. No ulvua Deviation. Tongue is midline. NECK: Trachea midline. No JVD. No meningeal signs noted CARDIOVASCULAR: Regular rate and rhythm. RESPIRATORY: No accessory muscle use. Clear to auscultation. Breath sounds equal bilaterally. GASTROINTESTINAL: Abdomen soft, non-tender, nondistended. Hepatic and splenic margins not palpable. MUSCULOSKELETAL: Extremities without clubbing, cyanosis, or edema. No obvious deformities. NEUROLOGICAL: Awake and alert. No obvious cranial nerve deficits. Motor grossly within normal limits. Five out of 5 muscle strength in the arms and legs. Normal speech. PSYCHIATRIC: Appropriate mood and affect; insight and judgment normal. Data Data Last Documented VS Vital Signs Date Time Temp Pulse Resp B/P (MAP) Pulse Ox O2 Delivery O2 Flow Rate FiO2 11/25/17 11:36 97.7 88 17 160/90 (113) 96 Orders Orders Ed Discharge Order (11/25/17 11:51) [facility] Medical Decision Making Medical Screen Exam Complete: Yes Emergency Medical Condition: Yes Medical Record Reviewed: Yes Differential Diagnosis Bronchitis versus sinusitis versus normal exam Narrative Course 47-year-old male that presents to the ED for evaluation of cold like symptoms. Patient was properly examined and was found to have signs and symptoms very consistent with bronchitis. Mild wheezing her in examined. This time I recommend trial of albuterol, Medrol Dosepak and Mucinex. Patient already taking Augmentin. Do not see any need for changing on this. Patient has no fevers other medical issues. Told to take OTC medicines as needed. Follow with PCP. See ED if worsening symptoms. Diagnosis Primary Impression: Bronchitis Patient Instructions: General Instructions Additional Instructions: Motrin and Tylenol for pain and fever. You can use [id number] antihistamine as well as well as Mucinex as needed for runny nose and congestion. Cough drops for cough as needed. Drink plenty of fluids. Follow-up with PCP. See ED for worsening symptoms. Med/Other Pt SpecificInfo: Prescription(s) given Scripts Guaifenesin ER (Mucus Relief ER) 600 Mg Tab 1200 MG PO BID Y for CHEST CONGESTION AND/OR COUGH, #20 TAB 0 Refills Prov: Erik Sullivan MD 11/25/17 Methylprednisolone Dosepak (Medrol Dosepak) 4 Mg Dspk 4 MG PO DIRECTED, #1 DSPK 0 Refills Per Pharmacist direction Prov: Erik Sullivan MD 11/25/17 Albuterol 8.5 GM Inh (Proair Hfa 8.5 GM Inh) 90 Mcg/Act Aer 2 PUFF INH Q4-6H Y for SHORTNESS OF BREATH, #1 INHALER 0 Refills 108 mcg/actuation Prov: Erik Sullivan MD 11/25/17 Disposition: 01 DISCHARGE HOME Condition: Stable Sean Alexandra Nov 25, 2017 11:52
== END 2017-11-25 12:02 | disposition home or self-care (01) ==
LOC: PHEFT 11:34
DX: J40 Bronchitis, not specified as acute or chronic (principal); F43.10 Post-traumatic stress disorder, unspecified; I34.1 Nonrheumatic mitral (valve) prolapse; F41.9 Anxiety disorder, unspecified; Z87.891 Personal history of nicotine dependence
CPT/HCPCS: 99283

== ENCOUNTER 2018-02-07 00:53 | Emergency (ER) | payer OTHER ==
[~2018-02-07] VITALS: Ht 177.8 cm; Wt 83.8 kg
[~2018-02-07 00:53] MED LIST changes: +ALBUAER3 INH; +GUAI600T11 PO; +HYDR-3799 PO; +MEDR4PAK PO
[2018-02-07 00:56] VITALS: BP 178/102; PULSE 88; RESP 18; TEMP 97.8; O2SAT 97
[2018-02-07] MEDS ORDERED: VIST25CA PO (01:10)
[2018-02-07 01:20] VITALS: BP 159/94; PULSE 75; RESP 18; O2SAT 98
[2018-02-07 01:48] VITALS: BP 115/74; PULSE 66; RESP 16; O2SAT 97
[2018-02-07 02:23] LABS: CHLORIDE 107 MEQ/L (98-107); SODIUM (NA) 139 MEQ/L (136-145)
--- NOTE | 2018-02-07 02:24 | PD ---
HPI Chief Complaint: Anxiety Time Seen by Provider: 01:28 Travel History International Travel<30 days: No Contact w/Intl Traveler<30days: No Traveled to known affect area: No History of Present Illness HPI 47-year-old male with history of anxiety disorder presents to the emergency department stating that he still feels anxious and noted his blood pressure is elevated after taking Vistaril and lorazepam which she is prescribed for history of panic disorder and anxiety disorder. Patient states that he typically awakens from sleep with episodes of panic disorder and anxiety. Patient typically takes his evening medications at midnight. Patient states that due to persistent elevation of blood pressure decided to come to the emergency room. Patient did notice some mild chest discomfort but it is resolved at this time. Patient states she has been under increased stress as his recently in November. Patient is solely responsible for his childcare and has left is doing at home with his older son who is 15. Patient states that he feels much improved since arrival to the emergency department and feels that the medications that he is taking are starting to take effect. Patient denies other concerns or complaints. No referred neck jaw back shoulder arm pain no shortness of breath no sweats no nausea no vomiting no abdominal pain no lower extremity. PFSH Past Medical History Narrative Medical Anxiety panic disorder skull fracture; orthopedic surgery; no tobacco use; nursing notes reviewed Hx Anticoagulant Therapy: No Anxiety: Yes (PTSD) Cardiovascular Problems: Yes (mitral valve prolapse) Chemotherapy: No Chest Pain: Yes Cerebrovascular Accident: No Diabetes: No Diminished Hearing: No Psychiatric: Yes (ANXIETY) Respiratory: No Immunizations Current: No Tetanus Vaccination: > 5 Years Influenza Vaccination: No Past Surgical History Abdominal Surgery: No Hysterectomy: No Joint Replacement: Yes (RIGHT ARM AND LEFT LEG) Other Surgery: Yes (RT ARM FX, LT LEG FX, RIB FX, SKULL FX) Social History Alcohol Use: No Tobacco Use: No (QUIT 1991) Substance Use: No Allergies-Medications (Allergen,Severity, Reaction): Coded Allergies: No Known Allergies (Unverified Adverse Reaction, Unknown, 02/07/18) 05/14/15 Reported Meds & Prescriptions Reported Meds & Active Scripts Active Proair Hfa 8.5 GM Inh (Albuterol Sulfate) 90 Mcg/Act Aer 2 Puff INH Q4-6H PRN 108 mcg/actuation Ativan (Lorazepam) 1 Mg Tab 1 Mg PO Q8H PRN Reported Vistaril (Hydroxyzine Pamoate) 25 Mg Cap 25 Mg PO DAILY PRN Review of Systems Except as stated in HPI: all other systems reviewed are Neg General / Constitutional: No: Fever, Chills Eyes: No: Visual changes HENT: No: Headaches, Lightheadedness, Neck Pain Cardiovascular: Positive: Chest Pain or Discomfort (Transient none now), No: Diaphoresis, Syncope, Dyspnea on exertion Respiratory: No: Cough, Shortness of Breath Gastrointestinal: No: Nausea, Vomiting, Abdominal Pain Genitourinary: No: Dysuria, Flank Pain Musculoskeletal: No: Myalgias, Arthralgias, Edema, Pain Skin: No Rash Neurologic: No: Weakness Psychiatric: Positive: Anxiety Hematologic/Lymphatic: No: Lymph Node Enlargement Physical Exam Narrative GENERAL: Well-developed well-nourished male no acute distress no respiratory distress SKIN: Warm and dry. HEAD: Normocephalic. EYES: No scleral icterus. No injection or drainage. NECK: Supple, trachea midline. No JVD or lymphadenopathy. CARDIOVASCULAR: Regular rate and rhythm without murmurs, gallops, or rubs. RESPIRATORY: Breath sounds equal bilaterally. No accessory muscle use. GASTROINTESTINAL: Abdomen soft, non-tender, nondistended. MUSCULOSKELETAL: No cyanosis, or edema. BACK: Nontender without obvious deformity. No CVA tenderness. Data Data Last Documented VS Vital Signs Date Time Temp Pulse Resp B/P (MAP) Pulse Ox O2 Delivery O2 Flow Rate FiO2 02/07/18 02:59 65 16 111/81 (91) 97 Room Air 02/07/18 00:56 97.8 Orders Orders Electrocardiogram (02/07/18 ) Troponin I (02/07/18 01:28) Basic Metabolic Panel (Bmp) (02/07/18 01:28) Magnesium (Mg) (02/07/18 01:28) Ed Discharge Order (02/07/18 02:42) Labs Laboratory Tests Test 02/07/18 01:40 Blood Urea Nitrogen 11 MG/DL Creatinine 1.00 MG/DL Random Glucose 108 MG/DL Calcium Level 8.6 MG/DL Magnesium Level 2.2 MG/DL Sodium Level 139 MEQ/L Potassium Level 3.6 MEQ/L Chloride Level 107 MEQ/L Carbon Dioxide Level 25.0 MEQ/L Anion Gap 7 MEQ/L Estimat Glomerular Filtration Rate 79 ML/MIN Troponin I LESS THAN 0.02 NG/ML MDM Medical Decision Making Medical Screen Exam Complete: Yes Emergency Medical Condition: Yes Medical Record Reviewed: Yes Interpretation(s) EKG: Normal sinus rhythm [address] elevation injury pattern or ectopy noted Troponin I: Less than 0.02, not elevated Basic metabolic panel: grossly within normal range; magnesium 2.2 within normal limits Differential Diagnosis Recurrent anxiety/panic attack, hypertension, atypical chest pain, ACS Narrative Course It is 2:40 AM patient is resting comfortably lab values are found to be grossly normal range troponin I is less than 0.02, not elevated EKG is sinus rhythm with no acute injury pattern; vital signs are in normal range; patient has history of recurrent panic disorder and at this point time presentation and exam appears consistent with recurrent episode of anxiety unlikely primary cardiac related symptoms. Elevated blood pressure consistent with panic episode. Patient is stable for discharge at this time. Diagnosis Primary Impression: Recurrent anxiety Referrals: Primary Care Physician call for appointment Patient Instructions: General Instructions Additional Instructions: Continue current medications as presently prescribed Follow-up with your primary care provider Return to the emergency department for any concerns or change in condition Med/Other Pt SpecificInfo: No Change to Meds Disposition: 01 DISCHARGE HOME Condition: Stable Addis Mcdonald MD February 07, 2018 02:24
[2018-02-07 02:26] LABS: CALCIUM 8.6 MG/DL (8.5-10.1); GLUCOSE,RANDOM 108 MG/DL (74-106); MAGNESIUM 2.2 MG/DL (1.5-2.5)
[2018-02-07 02:27] LABS: BLOOD UREA NITROGEN 11 MG/DL (7-18)
[2018-02-07 02:30] LABS: GLOMERULAR FILTRATION RATE 79 ML/MIN (>89)
[2018-02-07 02:35] LABS: TROPONIN I LESS THAN 0.02 NG/ML (0.02-0.05)
[2018-02-07 02:59] VITALS: BP 111/81; PULSE 65; RESP 16; O2SAT 97
--- NOTE | 2018-02-07 22:21 | EKG ---
Date Performed: 02/07/2018 Time Performed: 01:34:45 PTAGE: 47 years EKG: Sinus rhythm NORMAL ECG PREVIOUS TRACING : 09/27/2017 01.12 Since the previous tracing, no significant change noted DOCTOR: Masood Bautista Interpretating Date/Time 02/07/2018 22:19:54
== END 2018-02-07 03:12 | disposition home or self-care (01) ==
LOC: PHED 00:53
DX: F41.9 Anxiety disorder, unspecified (principal); F41.0 Panic disorder [episodic paroxysmal anxiety]; R07.89 Other chest pain; F43.10 Post-traumatic stress disorder, unspecified; I34.1 Nonrheumatic mitral (valve) prolapse; Z87.891 Personal history of nicotine dependence; Z79.51 Long term (current) use of inhaled steroids; Z79.899 Other long term (current) drug therapy
CPT/HCPCS: 80048; 83735; 84484; 93005

== ENCOUNTER 2018-02-09 03:19 | Emergency (ER) | payer OTHER ==
[~2018-02-09] VITALS: Ht 177.8 cm; Wt 83.0 kg
[~2018-02-09 03:19] MED LIST changes: -GUAI600T11 PO; -HYDR-3799 PO; -MEDR4PAK PO; +VIST25CA PO
[2018-02-09] MEDS ORDERED: SODIUM CHLORIDE 0.9% FLUSH 10 ML FLUSH IVF PRN (03:30)
[2018-02-09 03:38] VITALS: BP 153/89; PULSE 83; RESP 18; TEMP 98.2; O2SAT 99
--- NOTE | 2018-02-09 03:38 | PD ---
HPI Chief Complaint: Anxiety Time Seen by Provider: 03:22 Travel History International Travel<30 days: No Contact w/Intl Traveler<30days: No Traveled to known affect area: No History of Present Illness HPI Patient is a 47-year-old male who presents the emergency room complaints of anxiety reaction. Patient reports that he was sleeping, reports that in his sleep, he was having bad dream. Patient reports that he often has night terrors as his recently while in bed with him in November. Patient reports that tonight, he woke up from a dream, and felt as if he was falling. Reports that he woke up anxious with palpitations, reports that he also had some chest pain along with shortness of breath. Reports that chest pain only lasted for a few seconds and resolved on its own. Reports that he normally has these symptoms frequently and are related to his anxiety attacks. Reports that he is extremely stressed at home as his left him with 4 children, 2 of them are disabled - reports that this adds to his anxiety. Patient did take his Vistaril as well as 1 mg of Ativan and currently has resolution of symptoms. Patient currently with relief of symptoms at this time. PFSH Past Medical History Hx Anticoagulant Therapy: No Anxiety: Yes (PTSD) Cardiovascular Problems: Yes (mitral valve prolapse) Chemotherapy: No Chest Pain: Yes Cerebrovascular Accident: No Diabetes: No Diminished Hearing: No Psychiatric: Yes (ANXIETY) Respiratory: No Immunizations Current: No Past Surgical History Abdominal Surgery: No Hysterectomy: No Joint Replacement: Yes (RIGHT ARM AND LEFT LEG) Other Surgery: Yes (RT ARM FX, LT LEG FX, RIB FX, SKULL FX) Social History Alcohol Use: No Tobacco Use: No (QUIT 1991) Substance Use: No Allergies-Medications (Allergen,Severity, Reaction): Coded Allergies: No Known Allergies (Unverified Adverse Reaction, Unknown, 02/09/18) 05/14/15 Reported Meds & Prescriptions Reported Meds & Active Scripts Active Proair Hfa 8.5 GM Inh (Albuterol Sulfate) 90 Mcg/Act Aer 2 Puff INH Q4-6H PRN 108 mcg/actuation Ativan (Lorazepam) 1 Mg Tab 1 Mg PO Q8H PRN Reported Vistaril (Hydroxyzine Pamoate) 25 Mg Cap 25 Mg PO DAILY PRN Review of Systems General / Constitutional: No: Fever Eyes: No: Visual changes HENT: No: Headaches Cardiovascular: Positive: Chest Pain or Discomfort, Palpitations Respiratory: No: Shortness of Breath Gastrointestinal: No: Abdominal Pain Genitourinary: No: Dysuria Musculoskeletal: No: Pain Skin: No Rash Neurologic: No: Weakness Psychiatric: Positive: Anxiety, No: Depression, Suicidal Ideations, Substance Abuse Endocrine: No: Polydipsia Hematologic/Lymphatic: No: Easy Bruising Physical Exam Narrative GENERAL: NAD SKIN: Focused skin assessment warm/dry. HEAD: Atraumatic. Normocephalic. EYES: Pupils equal and round. No scleral icterus. No injection or drainage. ENT: No nasal bleeding or discharge. Mucous membranes pink and moist. NECK: Trachea midline. No JVD. CARDIOVASCULAR: Regular rate and rhythm. No murmur appreciated. RESPIRATORY: No accessory muscle use. Clear to auscultation. Breath sounds equal bilaterally. GASTROINTESTINAL: Abdomen soft, non-tender, nondistended. Hepatic and splenic margins not palpable. MUSCULOSKELETAL: No obvious deformities. No clubbing. No cyanosis. No edema. NEUROLOGICAL: Awake and alert. No obvious cranial nerve deficits. Motor grossly within normal limits. Normal speech. PSYCHIATRIC: anxious mood and affect; insight and judgment normal. Data Data Last Documented VS Vital Signs Date Time Temp Pulse Resp B/P (MAP) Pulse Ox O2 Delivery O2 Flow Rate FiO2 02/09/18 04:11 78 16 129/83 (98) 97 Room Air 02/09/18 03:38 98.2 Orders Orders Electrocardiogram (02/09/18 ) Chest, Single Ap (02/09/18 03:22) Basic Metabolic Panel (Bmp) (02/09/18 03:28) Ckmb (Isoenzyme) Profile (02/09/18 03:28) Complete Blood Count With Diff (02/09/18 03:28) Troponin I (02/09/18 03:28) Ecg Monitoring (02/09/18 03:28) Iv Access Insert/Monitor (02/09/18 03:28) Oximetry (02/09/18 03:28) Sodium Chloride 0.9% Flush (Ns Flush) (02/09/18 03:30) CKMB (02/09/18 03:33) CKMB% (02/09/18 03:33) Labs Laboratory Tests Test 02/09/18 03:33 White Blood Count 9.8 TH/MM3 Red Blood Count 5.15 MIL/MM3 Hemoglobin 15.7 GM/DL Hematocrit 44.5 % Mean Corpuscular Volume 86.4 FL Mean Corpuscular Hemoglobin 30.5 PG Mean Corpuscular Hemoglobin Concent 35.3 % Red Cell Distribution Width 12.3 % Platelet Count 235 TH/MM3 Mean Platelet Volume 9.1 FL Neutrophils (%) (Auto) 44.3 % Lymphocytes (%) (Auto) 37.7 % Monocytes (%) (Auto) 7.4 % Eosinophils (%) (Auto) 6.6 % Basophils (%) (Auto) 4.0 % Neutrophils # (Auto) 4.4 TH/MM3 Lymphocytes # (Auto) 3.7 TH/MM3 Monocytes # (Auto) 0.7 TH/MM3 Eosinophils # (Auto) 0.6 TH/MM3 Basophils # (Auto) 0.4 TH/MM3 CBC Comment DIFF FINAL Differential Comment Blood Urea Nitrogen 10 MG/DL Creatinine 1.20 MG/DL Random Glucose 111 MG/DL Calcium Level 8.9 MG/DL Sodium Level 139 MEQ/L Potassium Level 4.2 MEQ/L Chloride Level 105 MEQ/L Carbon Dioxide Level 25.7 MEQ/L Anion Gap 8 MEQ/L Estimat Glomerular Filtration Rate 64 ML/MIN Total Creatine Kinase 135 U/L Creatine Kinase MB 1.0 NG/ML Troponin I LESS THAN 0.02 NG/ML MDM Medical Decision Making Medical Screen Exam Complete: Yes Emergency Medical Condition: Yes Medical Record Reviewed: Yes Interpretation(s) EKG at 0333: NSR at 78bpm, qt/qtc: 370/403, no acute st or t wave changes Differential Diagnosis anxiety reaction, electrolyte abnormality, acs, pericarditis, endocarditis Narrative Course 47 year old male who presents to the ER with c/o of anxiety attack after he woke up from a night terror tonight. He did take a 1mg dose of ativan as well as vistaril prior to coming to the ER and now has resolution of symptoms. During the course of the patients emergency department visit, the patients history, examination, and differential diagnosis were reviewed with the patient. The patient was placed on a cardiac nurse specialist with oximetry and frequent blood pressure monitoring. The patient had an IV access obtained and blood work sent for analysis. . The patients laboratory studies were reviewed and remarkable for CBC & BMP Diagram 02/09/18 03:33 Calcium Level 8.9 Troponin is less than 0.02 Radiology studies were reviewed and remarkable for Last Impressions Chest X-Ray 02/09/18 0322 Signed Impressions: Service Date/Time: Friday, February 09, 2018 03:22 - CONCLUSION: No acute disease. Alfredo Rizvi Jr., MD Patient reevaluated, patient reports complete resolution of symptoms at this time. Patient has had multiple visits to the emergency room for similar complaints. Patient with most likely anxiety reaction as well as with atypical chest pain. Plan for patient to follow-up with his primary care doctor, he will return to the emergency room as needed. Diagnosis Primary Impression: Anxiety Additional Impression: Chest wall pain Patient Instructions: General Instructions Additional Instructions: Please provide patient with a copy of their lab work and studies at discharge* * Please follow up with your primary care doctor in 2-3 days Return to the ER if symptoms worsen or progress Return to the ER as needed Disposition: 01 DISCHARGE HOME Condition: Stable Veronica Bruno DO February 09, 2018 03:38
[2018-02-09 03:41] LABS: AUTOMATED NEUTROPHIL # 4.4 TH/MM3 (1.8-7.7); BASOPHIL # 0.4 TH/MM3 (0-0.2); EOSINOPHIL # 0.6 TH/MM3 (0-0.4); EOSINOPHIL % 6.6 % (0.0-4.0); HEMATOCRIT 44.5 % (39.0-51.0); HEMOGLOBIN 15.7 GM/DL (13.0-17.0); LYMPH % 37.7 % (9.0-44.0); LYMPHOCYTE # 3.7 TH/MM3 (1.0-4.8); MEAN CELL VOLUME 86.4 FL (80.0-100.0); MEAN CORPUSCULAR HEMOGLOBIN 30.5 PG (27.0-34.0); MEAN CORPUSCULAR HGB CONC 35.3 % (32.0-36.0); MEAN PLATELET VOLUME 9.1 FL (7.0-11.0); MONO % 7.4 % (0.0-8.0); MONOCYTE # 0.7 TH/MM3 (0-0.9); NEUT % 44.3 % (16.0-70.0); PLATELET COUNT 235 TH/MM3 (150-450); RED BLOOD COUNT 5.15 MIL/MM3 (4.50-5.90); RED CELL DISTRIBUTION WIDTH 12.3 % (11.6-17.2); WHITE BLOOD COUNT 9.8 TH/MM3 (4.0-11.0)
[2018-02-09 03:45] VITALS: RESP 18; O2SAT 99
[2018-02-09 03:47] LABS: CHLORIDE 105 MEQ/L (98-107); SODIUM (NA) 139 MEQ/L (136-145)
[2018-02-09 03:50] LABS: BICARBONATE 25.7 MEQ/L (21.0-32.0); BLOOD UREA NITROGEN 10 MG/DL (7-18); CALCIUM 8.9 MG/DL (8.5-10.1); GLUCOSE,RANDOM 111 MG/DL (74-106)
[2018-02-09 03:54] LABS: GLOMERULAR FILTRATION RATE 64 ML/MIN (>89)
--- NOTE | 2018-02-09 03:57 | RADRPT ---
EXAM DATE/TIME: 02/09/2018 03:22 [facility] COMPARISON: CHEST SINGLE AP, September 27, 2017, 0:58. INDICATIONS : Chest pain, difficulty breathing post panic attack tonight MEDICAL HISTORY : Mitral valve prolapse. SURGICAL HISTORY : None. ENCOUNTER: Initial ACUITY: 1 day PAIN SCORE: 3/10 LOCATION: Bilateral chest FINDINGS: A single view of the chest demonstrates the lungs to be symmetrically aerated without evidence of mas s, infiltrate or effusion. The cardiomediastinal contours are unremarkable. Osseous structures are intact. CONCLUSION: No acute disease. Alfredo Rizvi Jr., MD on February 09, 2018 at 3:55 Board Certified Radiologist. This report was verified electronically.
[2018-02-09 03:58] LABS: TROPONIN I LESS THAN 0.02 NG/ML (0.02-0.05)
[2018-02-09 04:11] VITALS: BP 129/83; PULSE 78; RESP 16; O2SAT 1; O2SAT 97
--- NOTE | 2018-02-09 14:39 | EKG ---
Date Performed: 02/09/2018 Time Performed: 03:33:16 PTAGE: 47 years EKG: Sinus rhythm NORMAL ECG PREVIOUS TRACING : 02/07/2018 01.34 Since the previous tracing, no significant change noted DOCTOR: Zachary Welch Interpretating Date/Time 02/09/2018 14:36:38
== END 2018-02-09 04:36 | disposition home or self-care (01) ==
LOC: PHED 03:19
DX: F41.9 Anxiety disorder, unspecified (principal); R07.89 Other chest pain; Z86.79 Personal history of other diseases of the circulatory system
CPT/HCPCS: 71045; 80048; 82550; 82552; 84484; 85025; 93005; 99285

== ENCOUNTER 2018-02-19 03:15 | Emergency (ER) | payer OTHER ==
[~2018-02-19] VITALS: Ht 177.8 cm; Wt 83.9 kg
[2018-02-19 03:20] VITALS: BP 164/90; PULSE 80; RESP 18; TEMP 97.9; O2SAT 98
--- NOTE | 2018-02-19 03:26 | PD ---
HPI Chief Complaint: Anxiety Time Seen by Provider: 03:23 Travel History International Travel<30 days: No Contact w/Intl Traveler<30days: No Traveled to known affect area: No History of Present Illness HPI Patient woke up and was having 1 of his typical panic attacks, and decided to take his home Ativan prescription about 20 minutes prior to arrival. However was too afraid of it not working, so the patient came in rather closely after taking his Ativan at home to the emergency department. Patient states that this is the way that he has had multiple episodes, states that he has night terrors/nightmares which usually awaken him state of panic. And this is exactly what has happened yet again. Patient denies any alleviating or aggravating factors currently. Patient denies any associated factors such as chest pain, fever, rash, nausea vomiting or diarrhea. No nondrug allergies Past medical history significant for mitral valve prolapse, anxiety, PTSD, multiple orthopedic surgeries PFSH Past Medical History Hx Anticoagulant Therapy: No Anxiety: Yes (PTSD) Cardiovascular Problems: Yes (mitral valve prolapse) Chemotherapy: No Chest Pain: Yes Cerebrovascular Accident: No Diabetes: No Diminished Hearing: No Psychiatric: Yes (ANXIETY) Respiratory: No Immunizations Current: No Past Surgical History Abdominal Surgery: No Hysterectomy: No Joint Replacement: Yes (RIGHT ARM AND LEFT LEG) Other Surgery: Yes (RT ARM FX, LT LEG FX, RIB FX, SKULL FX) Social History Alcohol Use: No Tobacco Use: No (QUIT 1991) Substance Use: No Allergies-Medications (Allergen,Severity, Reaction): Coded Allergies: No Known Allergies (Unverified Adverse Reaction, Unknown, 02/26/18) 05/14/15 Reported Meds & Prescriptions Reported Meds & Active Scripts Active Proair Hfa 8.5 GM Inh (Albuterol Sulfate) 90 Mcg/Act Aer 2 Puff INH Q4-6H PRN 108 mcg/actuation Ativan (Lorazepam) 1 Mg Tab 1 Mg PO Q8H PRN Reported Vistaril (Hydroxyzine Pamoate) 25 Mg Cap 25 Mg PO DAILY PRN Review of Systems General / Constitutional: No: Fever Eyes: No: Visual changes HENT: No: Headaches Cardiovascular: Positive: Palpitations Respiratory: No: Shortness of Breath Gastrointestinal: No: Abdominal Pain Genitourinary: No: Dysuria Musculoskeletal: No: Pain Skin: No Rash Neurologic: No: Weakness Psychiatric: Positive: Anxiety Endocrine: No: Polydipsia Hematologic/Lymphatic: No: Easy Bruising Physical Exam Narrative GENERAL: SKIN: Warm and dry. HEAD: Atraumatic. Normocephalic. EYES: Pupils equal and round. No scleral icterus. No injection or drainage. ENT: No nasal bleeding or discharge. Mucous membranes pink and moist. NECK: Trachea midline. No JVD. CARDIOVASCULAR: Regular rate and rhythm. RESPIRATORY: No accessory muscle use. Clear to auscultation. Breath sounds equal bilaterally. GASTROINTESTINAL: Abdomen soft, non-tender, nondistended. MUSCULOSKELETAL: Extremities without clubbing, cyanosis, or edema. No obvious deformities. NEUROLOGICAL: Awake and alert. No obvious cranial nerve deficits. Motor grossly within normal limits. Five out of 5 muscle strength in the arms and legs. Normal speech. PSYCHIATRIC: Appropriate mood and affect; insight and judgment normal. Data Data Last Documented VS Orders Orders Electrocardiogram (02/19/18 03:23) Urinalysis - C+S If Indicated (02/19/18 03:23) Orthostatic Vital Signs (02/19/18 03:23) Blood Glucose (02/19/18 03:23) Drug Screen, Random Urine (02/19/18 03:23) Ed Discharge Order (02/19/18 03:54) Labs Laboratory Tests Test 02/19/18 03:29 Urine Color YELLOW Urine Turbidity CLEAR Urine pH 5.5 Urine Specific [place] 1.025 Urine Protein NEG mg/dL Urine Glucose (UA) NEG mg/dL Urine Ketones NEG mg/dL Urine Occult Blood NEG Urine Nitrite NEG Urine Bilirubin NEG Urine Urobilinogen 0.2 MG/DL Urine Leukocyte Esterase NEG Urine RBC 0-2 /hpf Urine WBC 0-2 /hpf Urine Squamous Epithelial Cells 0-5 /hpf Urine Bacteria NONE /hpf Microscopic Urinalysis Comment CULT NOT INDICATED Urine Opiates Screen NEG Urine Barbiturates Screen NEG Urine Amphetamines Screen NEG Urine Benzodiazepines Screen NEG Urine Cocaine Screen NEG Urine Cannabinoids Screen NEG [facility] Medical Decision Making Medical Screen Exam Complete: Yes Emergency Medical Condition: Yes Medical Record Reviewed: Yes Interpretation(s) EKG shows normal sinus rhythm, 65 bpm, normal intervals, some J-point elevation but without any evidence of LVH or ST elevation [place] pattern. Differential Diagnosis STEMI versus tachyarrhythmia versus hypoglycemia versus dehydration Narrative Course EKG within normal limits without any evidence of ST elevation [place] or tachyarrhythmia Glucose Accu-Chek is 106 which is within normal limits Pulse ox read as excellent pleth wave and between 97 and 100 on room air which is within normal limits Orthostatic vitals negative Of note the patient is starting to feel better, now that his Ativan started to take effect. Patient is requesting to go home and does not want to remain here in the emergency department much longer, feels that this was warranted with antibiotic use waited longer for the Ativan to take effect he probably would not have come to the emergency department. Diagnosis Primary Impression: Recurrent anxiety Patient Instructions: General Instructions Disposition: DISCHARGE HOME Condition: Stable Elvis Negron MD February 19, 2018 03:26
[2018-02-19 03:40] LABS: BILIRUBIN, URINE NEG (NEG); BLOOD, URINE NEG (NEG); GLUCOSE,URINE NEG (NEG); KETONE, URINE NEG (NEG); NITRITE,URINE NEG (NEG); PH, URINE 5.5 (5.0-8.5); URINE COLOR YELLOW (YELLW/STRAW); URINE LEUKOCYTE ESTERASE NEG (NEG)
[2018-02-19 03:50] VITALS: BP_SYST 110; BP_SYST 116; BP_SYST 122; BP_DIAS 77; BP_DIAS 78; BP_DIAS 81
[2018-02-19 03:56] LABS: RBC, URINE 0-2 /hpf (0-3); SQUAMOUS EPITHELIAL CELL URINE 0-5 /hpf (0-5); WBC, URINE 0-2 /hpf (0-5)
--- NOTE | 2018-02-19 07:55 | EKG ---
Date Performed: 02/19/2018 Time Performed: 03:40:40 PTAGE: 47 years EKG: Sinus rhythm NORMAL ECG PREVIOUS TRACING : 02/09/2018 03.33 No significant change from previous tracing noted. DOCTOR: Dino Araiza Interpretating Date/Time 02/19/2018 07:52:59
== END 2018-02-19 04:05 | disposition home or self-care (01) ==
LOC: PHED 03:15
DX: F41.0 Panic disorder [episodic paroxysmal anxiety] (principal); F51.4 Sleep terrors [night terrors]; F43.10 Post-traumatic stress disorder, unspecified; I34.1 Nonrheumatic mitral (valve) prolapse; Z87.891 Personal history of nicotine dependence
CPT/HCPCS: 80307; 81001; 93005; 99284

== ENCOUNTER 2018-02-23 13:13 | Emergency (ER) | payer OTHER ==
[~2018-02-23] VITALS: Ht 177.8 cm; Wt 82.0 kg
[2018-02-23 13:22] VITALS: BP 194/95; PULSE 102; RESP 16; TEMP 98.3; O2SAT 99
[2018-02-23] MEDS ORDERED: SODIUM CHLORID 0.9% 500 ML INJ 500 ML IV ONE (13:30)
--- NOTE | 2018-02-23 13:32 | PD ---
HPI Chief Complaint: Chest Pain Time Seen by Provider: 13:26 Travel History International Travel<30 days: No Contact w/Intl Traveler<30days: No Traveled to known affect area: No History of Present Illness HPI Patient while he was cleaning the house he developed chest tightness, palpitations, and developed shortness of breath. Patient has had similar symptoms like this before usually they are related to night terrors and panic attacks. This is 1 of the few times where he is actually had his symptoms during the day. He took Ativan prior to arrival approximately about 20 minutes prior to arrival. Patient still continues to feel the same way. No nondrug allergies Past medical history corrective lens use, mitral valve prolapse, chest pain, PTSD, anxiety, panic attack, orthopedic surgeries to extremities. PFSH Past Medical History Hx Anticoagulant Therapy: No Anxiety: Yes (PTSD) Cardiovascular Problems: Yes (mitral valve prolapse) Chemotherapy: No Chest Pain: Yes Cerebrovascular Accident: No Diabetes: No Diminished Hearing: No Psychiatric: Yes (ANXIETY) Respiratory: No Immunizations Current: No Past Surgical History Abdominal Surgery: No Hysterectomy: No Joint Replacement: Yes (RIGHT ARM AND LEFT LEG) Other Surgery: Yes (RT ARM FX, LT LEG FX, RIB FX, SKULL FX) Social History Alcohol Use: No Tobacco Use: No (QUIT 1991) Substance Use: No Allergies-Medications (Allergen,Severity, Reaction): Coded Allergies: No Known Allergies (Unverified Adverse Reaction, Unknown, 02/19/18) 05/14/15 Reported Meds & Prescriptions Reported Meds & Active Scripts Active Proair Hfa 8.5 GM Inh (Albuterol Sulfate) 90 Mcg/Act Aer 2 Puff INH Q4-6H PRN 108 mcg/actuation Ativan (Lorazepam) 1 Mg Tab 1 Mg PO Q8H PRN Reported Vistaril (Hydroxyzine Pamoate) 25 Mg Cap 25 Mg PO DAILY PRN Review of Systems General / Constitutional: No: Fever Eyes: No: Visual changes HENT: No: Headaches Cardiovascular: Positive: Chest Pain or Discomfort, Palpitations Respiratory: No: Shortness of Breath Gastrointestinal: No: Abdominal Pain Genitourinary: No: Dysuria Musculoskeletal: No: Pain Skin: No Rash Neurologic: No: Weakness Psychiatric: No: Depression Endocrine: No: Polydipsia Hematologic/Lymphatic: No: Easy Bruising Physical Exam Narrative GENERAL: SKIN: Warm and dry. HEAD: Atraumatic. Normocephalic. EYES: Pupils equal and round. No scleral icterus. No injection or drainage. ENT: No nasal bleeding or discharge. Mucous membranes pink and moist. NECK: Trachea midline. No JVD. CARDIOVASCULAR: Regular rhythm, tachycardic rate. RESPIRATORY: No accessory muscle use. Clear to auscultation. Breath sounds equal bilaterally. GASTROINTESTINAL: Abdomen soft, non-tender, nondistended. MUSCULOSKELETAL: Extremities without clubbing, cyanosis, or edema. No obvious deformities. NEUROLOGICAL: Awake and alert. No obvious cranial nerve deficits. Motor grossly within normal limits. Five out of 5 muscle strength in the arms and legs. Normal speech. PSYCHIATRIC: Appropriate mood and affect; insight and judgment normal. Data Data Last Documented VS Vital Signs Date Time Temp Pulse Resp B/P (MAP) Pulse Ox O2 Delivery O2 Flow Rate FiO2 02/23/18 14:08 71 18 158/81 (106) 97 Room Air 02/23/18 13:22 98.3 Orders Orders Electrocardiogram (02/23/18 13:26) B-Type Natriuretic Peptide (02/23/18 13:26) Ckmb (Isoenzyme) Profile (02/23/18 13:26) Complete Blood Count With Diff (02/23/18 13:26) Comprehensive Metabolic Panel (02/23/18 13:26) Prothrombin Time / Inr (Pt) (02/23/18 13:26) Act Partial Throm Time (Ptt) (02/23/18 13:26) Troponin I (02/23/18 13:26) Lipase (02/23/18 13:26) Ecg Monitoring (02/23/18 13:26) Iv Access Insert/Monitor (02/23/18 13:26) Oximetry (02/23/18 13:26) Oxygen Administration (02/23/18 13:26) Sodium Chlorid 0.9% 500 Ml Inj (Ns 500 M (02/23/18 13:30) Ct Pulmonary Angiogram (02/23/18 13:26) Drug Screen, Random Urine (02/23/18 13:28) Alcohol (Ethanol) (02/23/18 13:28) Salicylates (Aspirin) (02/23/18 13:28) Tylenol (Acetaminophen) (02/23/18 13:28) Lorazepam Inj (Ativan Inj) (02/23/18 13:45) CKMB (02/23/18 13:30) CKMB% (02/23/18 13:30) Iohexol 350 Inj (Omnipaque 350 Inj) (02/23/18 14:23) Labs Laboratory Tests Test 02/23/18 13:30 White Blood Count 7.3 TH/MM3 Red Blood Count 5.19 MIL/MM3 Hemoglobin 15.4 GM/DL Hematocrit 44.7 % Mean Corpuscular Volume 86.1 FL Mean Corpuscular Hemoglobin 29.6 PG Mean Corpuscular Hemoglobin Concent 34.4 % Red Cell Distribution Width 12.1 % Platelet Count 315 TH/MM3 Mean Platelet Volume 8.3 FL Neutrophils (%) (Auto) 64.6 % Lymphocytes (%) (Auto) 24.1 % Monocytes (%) (Auto) 5.9 % Eosinophils (%) (Auto) 4.1 % Basophils (%) (Auto) 1.3 % Neutrophils # (Auto) 4.7 TH/MM3 Lymphocytes # (Auto) 1.8 TH/MM3 Monocytes # (Auto) 0.4 TH/MM3 Eosinophils # (Auto) 0.3 TH/MM3 Basophils # (Auto) 0.1 TH/MM3 CBC Comment DIFF FINAL Differential Comment Blood Urea Nitrogen 13 MG/DL Creatinine 1.40 MG/DL Random Glucose 126 MG/DL Total Protein 8.4 GM/DL Albumin 4.4 GM/DL Calcium Level 9.3 MG/DL Alkaline Phosphatase 76 U/L Aspartate Amino Transf (AST/SGOT) 27 U/L Alanine Aminotransferase (ALT/SGPT) 28 U/L Total Bilirubin 0.5 MG/DL Sodium Level 139 MEQ/L Potassium Level 3.9 MEQ/L Chloride Level 107 MEQ/L Carbon Dioxide Level 23.4 MEQ/L Anion Gap 9 MEQ/L Estimat Glomerular Filtration Rate 54 ML/MIN Total Creatine Kinase 167 U/L Creatine Kinase MB 1.3 NG/ML Troponin I LESS THAN 0.02 NG/ML B-Type Natriuretic Peptide 2 PG/ML Lipase 279 U/L [facility] Medical Decision Making Medical Screen Exam Complete: Yes Emergency Medical Condition: Yes Medical Record Reviewed: Yes Interpretation(s) EKG shows sinus tachycardia at 123 bpm, nonspecific ST-T wave changes, J-point elevation but without any actual ST elevation [place] pattern Differential Diagnosis Anxiety/stress reaction versus palpitations versus STEMI versus drug-induced versus anemia versus dehydration Narrative Course CBC shows no leukocytosis, no anemia, normal platelet count, no left shift Electrolytes are all within normal limits, Normal kidney liver and pancreatic functions. First set of cardiac enzymes negative, beta natruretic peptide normal Chest CT read by radiologist as negative for pulmonary embolus, no evidence of pericardial effusion, no evidence of aneurysm Diagnosis Primary Impression: Palpitations Additional Impression: Atypical chest pain Patient Instructions: General Instructions, Noncardiac Chest Pain (ED) Disposition: 01 DISCHARGE HOME Condition: Stable Elvis Negron MD Feb 23, 2018 13:32
[2018-02-23 13:40] VITALS: BP 183/99; PULSE 89; RESP 16; O2SAT 96
[2018-02-23 13:41] VITALS: RESP 16; O2SAT 98
[2018-02-23] MEDS ORDERED: LORazepam 2 MG/ML VIAL IV PUSH ONE (13:45)
[2018-02-23 13:48] LABS: AUTOMATED NEUTROPHIL # 4.7 TH/MM3 (1.8-7.7); BASOPHIL # 0.1 TH/MM3 (0-0.2); BASOPHIL % 1.3 % (0.0-2.0); EOSINOPHIL # 0.3 TH/MM3 (0-0.4); EOSINOPHIL % 4.1 % (0.0-4.0); HEMATOCRIT 44.7 % (39.0-51.0); HEMOGLOBIN 15.4 GM/DL (13.0-17.0); LYMPH % 24.1 % (9.0-44.0); LYMPHOCYTE # 1.8 TH/MM3 (1.0-4.8); MEAN CELL VOLUME 86.1 FL (80.0-100.0); MEAN CORPUSCULAR HEMOGLOBIN 29.6 PG (27.0-34.0); MEAN CORPUSCULAR HGB CONC 34.4 % (32.0-36.0); MEAN PLATELET VOLUME 8.3 FL (7.0-11.0); MONO % 5.9 % (0.0-8.0); MONOCYTE # 0.4 TH/MM3 (0-0.9); NEUT % 64.6 % (16.0-70.0); PLATELET COUNT 315 TH/MM3 (150-450); RED BLOOD COUNT 5.19 MIL/MM3 (4.50-5.90); RED CELL DISTRIBUTION WIDTH 12.1 % (11.6-17.2); WHITE BLOOD COUNT 7.3 TH/MM3 (4.0-11.0)
[2018-02-23 13:51] VITALS: BP 183/98; PULSE 76; RESP 17; O2SAT 98
[2018-02-23 13:58] LABS: CHLORIDE 107 MEQ/L (98-107); SODIUM (NA) 139 MEQ/L (136-145)
[2018-02-23 14:02] LABS: ALBUMIN 4.4 GM/DL (3.4-5.0); BICARBONATE 23.4 MEQ/L (21.0-32.0); BLOOD UREA NITROGEN 13 MG/DL (7-18); CALCIUM 9.3 MG/DL (8.5-10.1); GLUCOSE,RANDOM 126 MG/DL (74-106)
[2018-02-23 14:05] LABS: ALT (GPT) 28 U/L (12-78); AST (GOT) 27 U/L (15-37); GLOMERULAR FILTRATION RATE 54 ML/MIN (>89)
[2018-02-23 14:07] LABS: TOTAL BILIRUBIN ADULT 0.5 MG/DL (0.2-1.0); TOTAL PROTEIN 8.4 GM/DL (6.4-8.2)
[2018-02-23 14:08] VITALS: BP 158/81; PULSE 71; RESP 18; O2SAT 97
[2018-02-23 14:08] LABS: ALKALINE PHOSPHATASE 76 U/L (45-117)
[2018-02-23 14:10] LABS: TROPONIN I LESS THAN 0.02 NG/ML (0.02-0.05)
[2018-02-23] MEDS ORDERED: IOHEXOL 350 MG/ML 10 ML VIAL (for RAD DIAG) IVCONTRAST ONE (14:23)
--- NOTE | 2018-02-23 14:31 | RADRPT ---
EXAM DATE: 02/23/2018 2:25 PM EDT AGE/SEX: 47 years / Male INDICATIONS: Chest pain. Difficulty breathing. CLINICAL DATA: This is the patient's initial encounter. Patient reports that signs and symptoms have been present for 1 day and indicates a pain score of 2/10. MEDICAL/SURGICAL HISTORY: Cardiovascular disease. Mitral valve prolapse. None. RADIATION DOSE: 13.37 CTDI (mGy) COMPARISON: No prior [place] exams available for comparison. TECHNIQUE: Volumetric scanning was performed using a multi-row detector CT scanner during bolus infu mara of 75 ml Omnipaque 350 (iohexol) nonionic water-soluble contrast as a single exam dose. The juan diego a was post processed with a variety of visualization algorithms including full volume maximum intensi ty projection and sliding thin slab reformation. Using automated exposure control and adjustment of the mA and/or kV according to patient size, radiation dose was kept as low as reasonably achievable t o obtain optimal diagnostic quality images. FINDINGS: Pulmonary Arteries: No filling defects are seen in the pulmonary arteries out to the subsegmental ve ssels. The left and right pulmonary arteries are normal in diameter. Lung: No infiltrates seen. Effusion: None. Mediastinum: No evidence of mediastinal or hilar adenopathy. Other: There is a mild to moderate scoliosis. CONCLUSION: Negative exam with no evidence of pulmonary embolism.. Electronically signed by: Drake Argueta MD 02/23/2018 2:30 PM EDT
[2018-02-23 15:09] VITALS: BP 114/70; PULSE 68; RESP 16; O2SAT 96
[2018-02-23 16:11] LABS: PROTHROMBIN TIME - PATIENT 10.2 SEC (9.8-11.6)
[2018-02-23 16:38] LABS: ACETAMINOPHEN LESS THAN 2.0 MCG/ML (10.0-30.0)
--- NOTE | 2018-02-25 08:44 | EKG ---
Date Performed: 02/23/2018 Time Performed: 13:23:21 PTAGE: 47 years EKG: SINUS TACHYCARDIA NONSPECIFIC ST & T-WAVE ABNORMALITY ABNORMAL RHYTHM ECG PREVIOUS TRACING : 02/19/2018 03.40 Since previous tracing, heart rate is faster and ST-T bellamy es are new. DOCTOR: Luis Enrique Flores Interpretating Date/Time 02/25/2018 08:43:58
== END 2018-02-23 15:22 | disposition home or self-care (01) ==
LOC: PHED 13:13
DX: R00.2 Palpitations (principal); R07.89 Other chest pain; R06.02 Shortness of breath; R94.31 Abnormal electrocardiogram [ECG] [EKG]; F41.0 Panic disorder [episodic paroxysmal anxiety]; F43.10 Post-traumatic stress disorder, unspecified; I34.1 Nonrheumatic mitral (valve) prolapse; Z87.891 Personal history of nicotine dependence
CPT/HCPCS: 71275; 80053; 80307; 82550; 82552; 83690; 83880; 84484; 85025; 85610; 85730; 93005; 96361; 96374; 99285; J2060; J7040; Q9967

== ENCOUNTER 2018-02-26 03:28 | Emergency (ER) | payer OTHER ==
[~2018-02-26] VITALS: Ht 177.8 cm; Wt 83.5 kg
[2018-02-26 03:35] VITALS: BP 160/97; PULSE 85; RESP 16; TEMP 98.5; O2SAT 98
[2018-02-26 03:47] VITALS: BP 162/100; PULSE 78; RESP 18; O2SAT 99
[2018-02-26 04:05] VITALS: BP 140/92; PULSE 78; RESP 18; O2SAT 98
[2018-02-26 04:32] VITALS: BP 149/96; PULSE 74; O2SAT 97
--- NOTE | 2018-02-26 04:42 | PD ---
HPI Chief Complaint: Anxiety Time Seen by Provider: 04:41 Travel History International Travel<30 days: No Contact w/Intl Traveler<30days: No Traveled to known affect area: No History of Present Illness HPI 47-year-old male presents to the emergency department for complaint of possible panic attack. Patient has known history of recurrent anxiety disorder and pain attacks. Patient typically has panic attacks between 2 AM and 4 AM. Patient states he had typical presentation with feeling a buzzing sensation and feeling anxious and then because of this he took his morning Ativan but continued to feel anxious was is also typical for him and finally checked his blood pressure noted to be elevated which also is typical for him. Patient states that he finally decided to come to the emergency room again. Patient has been to the emergency department numerous times in same condition. Patient is on the care of Dr. Velasquez. Patient is in the care of Dr. Calvin Simpson, and patient is under care of a psychotherapist. Patient states that he no longer has sessions with his psychotherapist until March. Patient states that he is scheduled to see his primary care provider this week he already has an appointment. 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 Patient states that he does have a few friends that he can call but he had tries to avoid calling them at 2 or 4 in the morning when he has these events because they work. Patient's in November and she oftentimes was available for him to discuss his anxiety and concerns with. Patient states that he has not been overly depressed. Patient does not verbalize being suicidal or homicidal. Patient feels much improved after arriving to the emergency department and having someone to speak with. Patient is unable to identify specific exacerbating or alleviating factors although he does report talking about his anxiety and taking his Ativan does seem to help. Patient was just seen 02/20/18 with extensive workup including a CT pulmonary angiogram was negative for PE lab work was normal EKG showed no injury pattern. [facility] Past Medical History Narrative Medical Anxiety palpitations right valve prolapse previous skull fracture; no tobacco use alcohol use or substance use; nursing notes reviewed Hx Anticoagulant Therapy: No Anxiety: Yes (PTSD) Heart Rhythm Problems: Yes (MITRAL VALVE PROLAPSE) Cardiovascular Problems: Yes (mitral valve prolapse) Chemotherapy: No Chest Pain: Yes Cerebrovascular Accident: No Diabetes: No Diminished Hearing: No Psychiatric: Yes (ANXIETY) Respiratory: No Immunizations Current: No Sleep Apnea: Yes (CPAP) Past Surgical History Abdominal Surgery: No Hysterectomy: No Joint Replacement: Yes (RIGHT ARM AND LEFT LEG) Other Surgery: Yes (RT ARM FX, LT LEG FX, RIB FX, SKULL FX) Social History Alcohol Use: No Tobacco Use: No (QUIT 1991) Substance Use: No Allergies-Medications (Allergen,Severity, Reaction): Coded Allergies: No Known Allergies (Unverified Adverse Reaction, Unknown, 02/26/18) 05/14/15 Reported Meds & Prescriptions Reported Meds & Active Scripts Active Proair Hfa 8.5 GM Inh (Albuterol Sulfate) 90 Mcg/Act Aer 2 Puff INH Q4-6H PRN 108 mcg/actuation Ativan (Lorazepam) 1 Mg Tab 1 Mg PO Q8H PRN Reported Vistaril (Hydroxyzine Pamoate) 25 Mg Cap 25 Mg PO DAILY PRN Review of Systems Except as stated in HPI: all other systems reviewed are Neg General / Constitutional: No: Fever, Chills Eyes: No: Visual changes HENT: No: Headaches, Lightheadedness Cardiovascular: Positive: Palpitations, No: Chest Pain or Discomfort Respiratory: No: Shortness of Breath Gastrointestinal: No: Vomiting Genitourinary: No: Flank Pain Musculoskeletal: No: Myalgias, Arthralgias Skin: No Rash Neurologic: No: Weakness, Dizziness, Syncope Psychiatric: Positive: Anxiety, No: Suicidal Ideations, Homicidal Ideation Hematologic/Lymphatic: No: Lymph Node Enlargement Physical Exam Narrative GENERAL: Well-developed well-nourished male no acute distress no respiratory distress SKIN: Warm and dry. HEAD: Normocephalic. EYES: No scleral icterus. No injection or drainage. NECK: Supple, trachea midline. No JVD or lymphadenopathy. CARDIOVASCULAR: Regular rate and rhythm without murmurs, gallops, or rubs. RESPIRATORY: Breath sounds equal bilaterally. No accessory muscle use. GASTROINTESTINAL: Abdomen soft, non-tender, nondistended. MUSCULOSKELETAL: No cyanosis, or edema. BACK: Nontender without obvious deformity. No CVA tenderness. Data Data Last Documented VS Vital Signs Date Time Temp Pulse Resp B/P (MAP) Pulse Ox O2 Delivery O2 Flow Rate FiO2 02/26/18 04:32 74 149/96 (113) 97 Room Air 02/26/18 04:05 18 02/26/18 03:35 98.5 MDM Medical Decision Making Medical Screen Exam Complete: Yes Emergency Medical Condition: Yes Medical Record Reviewed: Yes Differential Diagnosis Recurrent anxiety attack, panic disorder, high blood pressure, arrhythmia Narrative Course Patient presents with elevated blood pressure. Patient has talked extensively with his nurse and has gone down and feels essentially back to normal. Long conversation with patient regarding utilization of professional resources as well as community resources to bite him with persons to talk with regarding his stressors and anxiety precipitating events. Patient's blood pressure has returned into a more acceptable/normal range. Patient is no longer feeling anxious stressed and no longer has his buzzing sensation that he describes when he is developing symptoms of a panic attack. Patient denies any chest pain shortness of breath at this time. Patient is stable to return home and follow- up with his primary care provider as scheduled already for this week. Patient is encouraged to contact his psychotherapist regarding resources for community health groups. Diagnosis Primary Impression: Recurrent anxiety Referrals: Primary Care Physician 2 days As previously scheduled Patient Instructions: General Instructions Additional Instructions: Follow-up with your primary care provider Dr Velasquez Return to the emergency department for concerns or change in condition Increase fluid hydration Med/Other Pt SpecificInfo: No Change to Meds Disposition: 01 DISCHARGE HOME Condition: Stable Addis Mcdonald MD Feb 26, 2018 04:42
== END 2018-02-26 05:04 | disposition home or self-care (01) ==
LOC: PHED 03:28
DX: F41.0 Panic disorder [episodic paroxysmal anxiety] (principal); G47.30 Sleep apnea, unspecified; I34.1 Nonrheumatic mitral (valve) prolapse; F43.10 Post-traumatic stress disorder, unspecified; Z87.891 Personal history of nicotine dependence
CPT/HCPCS: 99283

== ENCOUNTER 2018-03-02 02:38 | Emergency (ER) | payer OTHER ==
[~2018-03-02] VITALS: Ht 177.8 cm; Wt 83.1 kg
[2018-03-02 02:43] VITALS: BP 176/102; PULSE 89; RESP 16; TEMP 97.4; O2SAT 98
[2018-03-02] MEDS ORDERED: LORazepam 1 MG TAB PO ONE (03:00)
--- NOTE | 2018-03-02 03:01 | PD ---
HPI Chief Complaint: Anxiety Time Seen by Provider: 02:48 Travel History International Travel<30 days: No Contact w/Intl Traveler<30days: No Traveled to known affect area: No History of Present Illness HPI 47yo M with PMH of anxiety with recurrent panic attacks here with c/o panic attack. Pt is here frequently for this and last visit was 4 days ago on . Pt said he ran out of his ativan 4 days ago and has already notified his primary care physician about it. Pt was also here for chest pain 02/23/18 and had full work up including negative CTA chest. Pt said it feels like his panic attack and usually has chest pain across his chest during it and his blood pressure is elevated when he has panic attacks. Denies any fever, n/v, abdominal pain, focal weakness or numbness. PFSH Past Medical History Hx Anticoagulant Therapy: No Anxiety: Yes (PTSD) Heart Rhythm Problems: Yes (MITRAL VALVE PROLAPSE) Cardiovascular Problems: Yes (mitral valve prolapse) Chemotherapy: No Chest Pain: Yes Cerebrovascular Accident: No Diabetes: No Diminished Hearing: No Psychiatric: Yes (ANXIETY) Respiratory: No Immunizations Current: No Sleep Apnea: Yes (CPAP) Past Surgical History Abdominal Surgery: No Hysterectomy: No Joint Replacement: Yes (RIGHT ARM AND LEFT LEG) Other Surgery: Yes (RT ARM FX, LT LEG FX, RIB FX, SKULL FX) Social History Alcohol Use: No Tobacco Use: No (QUIT 1991) Substance Use: No Allergies-Medications (Allergen,Severity, Reaction): Coded Allergies: No Known Allergies (Unverified Adverse Reaction, Unknown, 03/02/18) 05/14/15 Reported Meds & Prescriptions Reported Meds & Active Scripts Active Proair Hfa 8.5 GM Inh (Albuterol Sulfate) 90 Mcg/Act Aer 2 Puff INH Q4-6H PRN 108 mcg/actuation Ativan (Lorazepam) 1 Mg Tab 1 Mg PO Q8H PRN Reported Vistaril (Hydroxyzine Pamoate) 25 Mg Cap 25 Mg PO DAILY PRN Review of Systems Except as stated in HPI: all other systems reviewed are Neg Physical Exam Narrative GENERAL: 47yo M anxious appearing. SKIN: Focused skin assessment warm/dry. HEAD: Atraumatic. Normocephalic. EYES: Pupils equal and round. No scleral icterus. No injection or drainage. ENT: No nasal bleeding or discharge. Mucous membranes pink and moist. NECK: Trachea midline. No JVD. CARDIOVASCULAR: Regular rate and rhythm. No murmur appreciated. RESPIRATORY: No accessory muscle use. Clear to auscultation. Breath sounds equal bilaterally. GASTROINTESTINAL: Abdomen soft, non-tender, nondistended. MUSCULOSKELETAL: No obvious deformities. No clubbing. No cyanosis. No edema. NEUROLOGICAL: Awake and alert. No obvious cranial nerve deficits. Motor grossly within normal limits in all extremities. Sensation intact. PSYCHIATRIC: Anxious appearing. Data Data Last Documented VS Vital Signs Date Time Temp Pulse Resp B/P (MAP) Pulse Ox O2 Delivery O2 Flow Rate FiO2 03/02/18 03:04 83 16 178/108 (131) 99 Room Air 03/02/18 02:43 97.4 Orders Orders Electrocardiogram (03/02/18 ) Lorazepam (Ativan) (03/02/18 03:00) [facility] Medical Decision Making Medical Screen Exam Complete: Yes Emergency Medical Condition: Yes Interpretation(s) EKG: NSR 71bpm. Normal axis. No ST segment elevation or depression. Differential Diagnosis Anxiety vs. malingering vs. uncontrolled HTN Narrative Course 47yo M with anxiety here with c/o panic attack. EKG normal. Pt was just here 4 days ago and 8 days ago. BP initially elevated but after ativan, pt feels better and BP improved. Do not think chest pain is cardiac. He has appointment with his primary care physician on Monday and has a psychotherapist that comes to his house weekly. Return precautions given. Diagnosis Primary Impression: Anxiety Patient Instructions: General Instructions Departure Forms: Tests/Procedures Additional Instructions: Please follow up with your primary care physician at your appointment time. Return to the ED if symptoms worsen. Med/Other Pt SpecificInfo: No Change to Meds Disposition: 01 DISCHARGE HOME Condition: Stable Maria Elena Wooten DO Mar 02, 2018 03:01
[2018-03-02 03:04] VITALS: BP 178/108; PULSE 83; RESP 16; O2SAT 99
[2018-03-02 03:24] VITALS: BP 156/96
--- NOTE | 2018-03-02 15:43 | EKG ---
Date Performed: 03/02/2018 Time Performed: 03:03:50 PTAGE: 47 years EKG: Sinus rhythm NORMAL ECG Since the PREVIOUS TRACING , no significant change noted PREVIOUS TRACIN02/23/2018@ 13.23 DOCTOR: Mishel Gutierrez Interpretating Date/Time 03/02/2018 15:42:52
== END 2018-03-02 03:35 | disposition home or self-care (01) ==
LOC: PHED 02:38
DX: F41.0 Panic disorder [episodic paroxysmal anxiety] (principal); I34.1 Nonrheumatic mitral (valve) prolapse; F43.10 Post-traumatic stress disorder, unspecified; Z87.891 Personal history of nicotine dependence
CPT/HCPCS: 93005; 99283

== ENCOUNTER 2018-03-17 02:18 | Emergency (ER) | payer OTHER ==
[~2018-03-17] VITALS: Ht 177.8 cm; Wt 83.3 kg
[2018-03-17 02:23] VITALS: BP 152/86; PULSE 77; RESP 16; TEMP 97.8; O2SAT 98
[2018-03-17 02:48] VITALS: BP 125/75; PULSE 66; RESP 16; O2SAT 96
--- NOTE | 2018-03-17 02:50 | PD ---
HPI . Panic attack Chief Complaint: Anxiety Time Seen by Provider: 02:34 Travel History International Travel<30 days: No Contact w/Intl Traveler<30days: No Traveled to known affect area: No History of Present Illness HPI Patient presents complaining with a panic attack. He reports a history of frequent panic attacks. He states that he often times takes Ativan before he goes to bed and that seems to prevent panic attacks. He did not take 1 before bed tonight and awakened early this morning with a panic attack. He has taken an Ativan since the onset of the panic attack and states that he is getting better. He states that he has palpitations, a tight sensation in his neck and a cool, clammy feeling. This is his usual panic attack. He states that his symptoms tonight were moderate and have improved with Ativan. Onset was about 2 AM. PFSH Past Medical History Hx Anticoagulant Therapy: No Anxiety: Yes (PTSD) Heart Rhythm Problems: Yes (MITRAL VALVE PROLAPSE) Cardiovascular Problems: Yes (mitral valve prolapse) Chemotherapy: No Chest Pain: Yes Cerebrovascular Accident: No Diabetes: No Diminished Hearing: No Psychiatric: Yes (ANXIETY) Respiratory: No Immunizations Current: No Sleep Apnea: Yes (CPAP) Tetanus Vaccination: > 5 Years Influenza Vaccination: No ?: Not Past Surgical History Abdominal Surgery: No Hysterectomy: No Joint Replacement: Yes (RIGHT ARM AND LEFT LEG) Other Surgery: Yes (RT ARM FX, LT LEG FX, RIB FX, SKULL FX) Social History Alcohol Use: No Tobacco Use: No (QUIT 1991) Substance Use: No Allergies-Medications (Allergen,Severity, Reaction): Coded Allergies: No Known Allergies (Unverified Adverse Reaction, Unknown, 03/02/18) 05/14/15 Reported Meds & Prescriptions Reported Meds & Active Scripts Active Proair Hfa 8.5 GM Inh (Albuterol Sulfate) 90 Mcg/Act Aer 2 Puff INH Q4-6H PRN 108 mcg/actuation Ativan (Lorazepam) 1 Mg Tab 1 Mg PO Q8H PRN Reported Vistaril (Hydroxyzine Pamoate) 25 Mg Cap 25 Mg PO DAILY PRN Review of Systems Except as stated in HPI: all other systems reviewed are Neg Physical Exam Narrative GENERAL: Awake and alert. SKIN: warm/dry. HEAD: Normocephalic. Atraumatic. EYES: Pupils equal and round. Extraocular movements are intact. ENT: Mucous membranes pink and moist. NECK: Supple. Full range of motion without pain.. CARDIOVASCULAR: Regular rate and rhythm. Heart sounds normal. RESPIRATORY: No accessory muscle use. Clear to auscultation. Breath sounds equal bilaterally. MUSCULOSKELETAL: No obvious deformities. Normal muscle tone. NEUROLOGICAL: Awake and alert. No obvious cranial nerve deficits. Motor grossly within normal limits. Normal speech. PSYCHIATRIC: Appropriate mood and affect; insight and judgment normal. Data Data Last Documented VS Vital Signs Date Time Temp Pulse Resp B/P (MAP) Pulse Ox O2 Delivery O2 Flow Rate FiO2 03/17/18 02:23 97.8 77 16 152/86 (108) 98 MDM Medical Decision Making Medical Screen Exam Complete: Yes Emergency Medical Condition: Yes Medical Record Reviewed: Yes (This patient is seen here frequently with similar complaints.) Differential Diagnosis My differential diagnosis anxiety includes but is not limited to generalized anxiety disorder, depression, psychoses, drug abuse, alcohol abuse Narrative Course Patient presents complaining with a panic attack. He took Ativan prior to arrival and states that he is getting better. He will be discharged home. Diagnosis Primary Impression: Recurrent anxiety Patient Instructions: General Instructions Departure Forms: Tests/Procedures Disposition: 01 DISCHARGE HOME Condition: Stable Julia Kent MD Mar 17, 2018 02:50
== END 2018-03-17 03:01 | disposition home or self-care (01) ==
LOC: PHED 02:18
DX: F41.9 Anxiety disorder, unspecified (principal); R00.2 Palpitations
CPT/HCPCS: 99282